=== PATIENT | male | born 1955 | race Caucasian/White ===

== ENCOUNTER 2017-05-20 03:39 | Emergency (ER) | payer OTHER, SELFPAY | END 2017-05-20 06:20 | disposition home or self-care (01) | PROVIDERS: Emergency Provider Emergency Medicine; Family Provider Family Medicine Addiction Medicine; Visit Provider Emergency Medicine | DX: N45.1 Epididymitis (principal); J44.9 Chronic obstructive pulmonary disease, unspecified; F17.210 Nicotine dependence, cigarettes, uncomplicated; K21.9 Gastro-esophageal reflux disease without esophagitis; Z79.82 Long term (current) use of aspirin; Z79.51 Long term (current) use of inhaled steroids; Z79.899 Other long term (current) drug therapy | CPT/HCPCS: 80048; 80053; 82150; 83690; 96372; 99282 ==

== ENCOUNTER 2017-05-26 11:20 | Emergency (ER) | payer OTHER, SELFPAY | END 2017-05-26 14:06 | disposition home or self-care (01) | PROVIDERS: Emergency Provider Family Medicine; Visit Provider Family Medicine | DX: K29.00 Acute gastritis without bleeding (principal); Z79.899 Other long term (current) drug therapy | CPT/HCPCS: 36415; 80053; 85025; 85378; 99283 ==

== ENCOUNTER 2021-03-01 21:16 | Emergency (ER) | payer OTHER, MEDICARE, SELFPAY ==
[2021-03-01 21:13] VITALS: BMI 32.5
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
[2021-03-01 21:20] VITALS: BP 130/80; PULSE 98; RESP 22; TEMP 37.2; O2SAT 99
[2021-03-01 21:25] LABS: Basophils # 0.1 K/mm3 (0-0.2); Basophils % 1.1 % (0.1-2.0); Eosinophils # 0.4 K/mm3 (0.0-0.4); Hemoglobin 15.1 g/dL (14.1-18.0); Lymphocytes # 2.2 K/mm3 (0.7-4.5); Lymphocytes % 28.3 % (10-50); Mean Corpuscular HGB Conc 34.3 g/dL (31.8-35.4); Mean Corpuscular Hemoglobin 31.8 pg (27.0-31.2); Mean Corpuscular Volume 92.7 fl (80-94); Mean Platelet Volume 8.1 fl (7.4-10.4); Monocytes # 0.5 K/mm3 (0.1-1.0); Monocytes % 6.3 % (1.7-9.3); Neutrophils # 4.6 K/mm3 (1.8-7.8); Neutrophils % 59.2 % (37.0-80.0); Platelet Count 210 K/mm3 (142-424); Red Blood Count 4.75 M/mm3 (4.60-6.20); White Blood Count 7.7 K/mm3 (4.8-10.8)
[2021-03-01 21:29] LABS: Chloride 102 mmol/L (98-107)
[2021-03-01 21:30] LABS: Sodium 137 mmol/L (136-145)
[2021-03-01 21:32] LABS: Alanine Aminotransferase 27 U/L (12-78); Alkaline Phosphatase 108 U/L (38-126); Aspartate Amino Transferase 34 U/L (17-59); Blood Urea Nitrogen 14 mg/dl (9-20); Creatinine Clearance Estimated 112 mL/min (50-200); Estimated Glomerular Filt Rate 84 ml/min (>60); GFR (African American) 102 ML/MIN (>60)
[2021-03-01 21:33] LABS: Albumin Level 3.9 g/dl (3.5-5.0); Albumin/Globulin Ratio 1.3 (1.1-1.8); Carbon Dioxide 29 mmol/L (22.0-30.0); Globulin 2.9 g/dL (1.3-3.2); Glucose 173 mg/dl (74-100); Total Protein,Serum 6.8 g/dl (6.3-8.2)
[2021-03-01 21:43] LABS: Bilirubin,Total < 0.1 mg/dl (0.2-1.3)
[2021-03-01 21:55] LABS: Erythrocyte Sedimentation Rate 21 mm/hr (0-20)
[2021-03-01 22:22] LABS: Procalcitonin 0.055 ng/mL (0.0-2.0)
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
[2021-03-02 01:10] VITALS: BP 124/75; PULSE 83; RESP 20; TEMP 37.1; O2SAT 99
== END 2021-03-02 01:19 | disposition home or self-care (01) ==
PROVIDERS: Emergency Provider Emergency Medicine; PCP Family Medicine
DX: S01.81XA Laceration without foreign body of other part of head, initial encounter (principal); S16.1XXA Strain of muscle, fascia and tendon at neck level, initial encounter; S00.03XA Contusion of scalp, initial encounter; V89.2XXA Person injured in unspecified motor-vehicle accident, traffic, initial encounter; Y92.413 State road as the place of occurrence of the external cause
CPT/HCPCS: 12002; 70450; 71045; 72125; 72170; 80053; 84145; 85025; 85651; 86140; 96365; 96375; 99281

== ENCOUNTER 2021-03-03 16:03 | Emergency (ER) | payer OTHER, MEDICARE, SELFPAY ==
[2021-03-03 16:04] VITALS: BP 154/101; PULSE 113; RESP 18; TEMP 36.7; O2SAT 96; BMI 27.4
[2021-03-03 16:34] VITALS: BP 154/101; PULSE 97; RESP 16; O2SAT 98
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
[2021-03-03 18:47] VITALS: BP 123/74; PULSE 78; RESP 16; TEMP 36.6; O2SAT 98
== END 2021-03-03 18:49 | disposition home or self-care (01) ==
PROVIDERS: Emergency Provider Emergency Medicine; PCP Family Medicine
DX: S70.12XA Contusion of left thigh, initial encounter (principal); V49.3XXA Car occupant (driver) (passenger) injured in unspecified nontraffic accident, initial encounter; Y92.488 Other paved roadways as the place of occurrence of the external cause; F17.210 Nicotine dependence, cigarettes, uncomplicated
CPT/HCPCS: 72192; 73552; 73700; 99282

== ENCOUNTER 2021-04-13 18:31 | Emergency (ER) | payer MEDICARE, SELFPAY ==
[2021-04-13 19:40] VITALS: BP 159/100; PULSE 75; RESP 18; TEMP 36.7; O2SAT 97; BMI 28.5
--- NOTE | 2021-04-13 20:25 | HMH.EDUTC ---
[facility] [place] Clinical Impression: Local reaction to pneumococcal vaccine Disposition: Home, Self-Care Condition on Discharge: Good Instructions: DI for Adverse Drug Reaction -- Other Additional Instructions: Take the medications as directed. Follow up with your regular doctor for a recheck of the site in 24 to 48 hours. Take benedryl regularly for the next few days also. GO TO THE ER FOR ANY WORSENING SYMPTOMS Prescriptions: cephALEXin [cephALEXin 500mg capsule] 500 mg PO Q6H 10 Days #40 cap Transmission Status: Pending to [id number] Referrals: Provider,Referral, [Primary Care Provider] - Time of Disposition: 20:41 Medical Decision Making - Medical Records Medical records reviewed: No: I reviewed the patient's medical records. - Kaveh Inquiry Pt receiving controlled substance: No Vital Signs: 04/13/21 19:40 Temperature 98.1 F Temperature Source Oral Pulse Rate [Left] 75 Respiratory Rate 18 Blood Pressure [Right Arm] 159/100 H Blood Pressure Mean [Right Arm] 119 02 Sat by Pulse Oximetry 97 [facility] [place] - General Stated complaint: pNEUMONIA 04/11 l ARM PAIN SWOLLEN Time Seen by Provider: 04/13/21 20:25 Mode of Arrival: Ambulatory Source of Information: Patient Limitations: No Limitations Description of Symptoms (Recalled from Triage Doc. by RN): PT STATES HE HAD HIS PNEUMONIA VACCINE YESTERDAY IN HIS L DELT. THIS AM HE WOKE UP AND HIS L ARM WAS SWOLLEN, PAINFUL AND RED FROM HIS SHOULDER DOWN TO HIS FA. HEENT Symptoms (Recalled from RN notes): No Resp Symptoms (Recalled from RN notes): No Skin Symptoms (Recalled from RN notes): Yes MS Symptoms (Recalled from RN notes): No Functional Status (Recalled from RN notes): NA - History of Present Illness Provider Complaint: He recieved his pneumonia vaccine 2 days ago in his left upper arm. He has had redness below the site down to around his elbow since yesterday. He also has some swelling of the arm around the injection site. - Related Data Previous Rx's Medication Instructions Recorded Meloxicam [Mobic 15 mg tab] 15 mg PO DAILY #10 tab 03/03/21 cephALEXin [cephALEXin 500mg 500 mg PO Q6H 10 Days #40 cap 04/13/21 capsule] Allergies Allergy/AdvReac Type Severity Reaction Status Date / Time No Known Allergies Allergy Unverified 05/26/17 11:34 - Worker's Comp Is this a Worker's Comp case?: No [facility] History - Hepatitis A Screen Drug use history?: No High risk sexual behaviors?: No History of sexually transmitted infection?: No Currently employed?: No Childcare worker?: No Do you have indoor plumbing?: Yes Do you have electricity?: Yes Attestation statement:: This patient has been screened for Hepatitis A risk factors. I have reviewed the patient's past medical history: Yes Medical History: Denies:: Cancer - Social History Smoking Status: Current every day smoker ROS Obtained: Yes All systems reviewed & no additional complaints - Constitutional Constitutional: Denies chills, Denies fever(s) - Eyes Eyes: Denies eye discharge - ENT Ears, Nose, Mouth, and Throat: Denies dizziness, Denies otalgia, Denies sore throat, Denies vertigo/dizziness - Cardiovascular Cardiovascular: Denies chest pain - Respiratory Respiratory: Denies chest congestion, Denies cough - Musculoskeletal Musculoskeletal: Denies joint pain, Denies back pain, Denies neck pain - Integumentary/Breasts Skin/Breast: Reports as per HPI Physical Exam - General General appearance: alert, in no apparent distress - Head Head exam: atraumatic, normocephalic, normal inspection - Eye Eye exam: Present: normal appearance, PERRL, EOMI - ENT ENT exam: Present: normal exam, normal oropharynx, mucous membranes moist, TM's normal bilaterally, normal external ear exam - Neck Neck exam: Present: normal inspection, full ROM, trachea midline. Absent: meningismus, lymphadenopathy - Chest Chest inspection: Present:
[2021-04-13 20:44] VITALS: BP 159/100; PULSE 75; RESP 18; TEMP 36.7
== END 2021-04-13 20:45 | disposition home or self-care (01) ==
PROVIDERS: Emergency Provider Nurse Practitioner Family
DX: R22.41 Localized swelling, mass and lump, right lower limb (principal); T50.A95A Adverse effect of other bacterial vaccines, initial encounter; F17.210 Nicotine dependence, cigarettes, uncomplicated
CPT/HCPCS: G0463; 99202

== ENCOUNTER 2021-08-16 17:00 | Emergency (ER) | payer MEDICARE, SELFPAY ==
[2021-08-16 18:24] VITALS: BP 145/100; PULSE 91; RESP 18; TEMP 37; O2SAT 98; BMI 30.1
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
[2021-08-16 18:54] VITALS: BP 146/98; PULSE 90; RESP 18; TEMP 36.7; O2SAT 97; BMI 30.1
--- NOTE | 2021-08-16 19:02 | HMH.EDGENADL ---
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 Holter monitor has been applied. Follow-up with your primary care provider next week for further care and for Holter monitor results. Return to the emergency department if fainting returns. Prescriptions: Metoprolol Succinate [Metoprolol Succinate 25mg Tablet*] 25 mg PO DAILY #30 tab Transmission Status: Received by [id number] Referrals: Terell Martin JR, MD [Primary Care Provider] - - Critical Care Critical Care Time: No Attestation: On 08/16/21, the high probability of a clinically significant, sudden or life threatening deterioration of the following system(s) required my full and direct attention, intervention and personal management. The time I documented below is in addition to time spent performing reported procedures but includes the following listed in this critical care notation. Medical Decision Making - Kaveh Inquiry Pt receiving controlled substance: No Vital Signs: 08/16/21 18:24 08/16/21 18:54 08/16/21 19:45 Temperature 98.6 F 98.1 F Temperature Source Oral Oral Pulse Rate [Left] 91 H 90 Pulse Rate [Orthostatic Lying Left Radial] 82 Pulse Rate [Orthostatic Sitting Left Radial] 85 Pulse Rate [Orthostatic Standing Left Radial] 86 Respiratory Rate 18 18 Blood Pressure [Orthostatic Lying Right Arm] 138/95 H Blood Pressure [Orthostatic Sitting] 144/96 H Blood Pressure [Orthostatic Standing] 140/103 H Blood Pressure [Right Arm] 145/100 H 146/98 H Blood Pressure Mean [Right Arm] 115 114 Blood Pressure Source [Right Arm] Automatic Cuff Blood Pressure Position [Right Arm] Sitting 02 Sat by Pulse Oximetry 98 97 Oxygen Delivery Method Room Air - Lab Data Lab Results 08/16/21 19:32: WBC 10.5, RBC 5.62, Hgb 17.2, Hct 53.3 H, MCV 94.7 H, MCH 30.6, MCHC 32.3, RDW 13.9, Plt Count 262, MPV 8.5, Neut % (Auto) 79.3, Lymph % (Auto) 13.7, [place] % (Auto) 4.1, Eos % (Auto) 1.4, Baso % (Auto) 1.4, Neut # (Auto) 8.3 H, Lymph # (Auto) 1.5, [place] # (Auto) 0.4, Eos # (Auto) 0.1, Baso # (Auto) 0.2 08/16/21 19:32: Sodium 139, Potassium 4.5, Chloride 105, Carbon Dioxide 27, Anion Gap 11.5, BUN 17, Creatinine 1.10, Estimated Creat Clear 90, Estimated GFR 67, Est GFR ( Amer) 81, Glucose 98, Calcium 9.0, Total Bilirubin 0.5, AST 33, ALT 46, Alkaline Phosphatase 87, Troponin I < 0.01, Total Protein 8.0, Albumin 4.8, Globulin 3.2, Albumin/Globulin Ratio 1.5, Thyroxine (T4) 8.6 Result diagrams: 08/16/21 19:32 08/16/21 19:32 Orders (Tests/Meds): ED MEDICATIONS Generic Name Dose Route Start Last Admin Trade Name Freq PRN Reason Stop Dose Admin Sodium Chloride 10 ml 08/16/21 19:04 Sodium Chloride 0.9% 10ml Flush Syringe IV 09/15/21 19:03 NEEDED PRN Maintain IV Site Discontinued Medications Generic Name Dose Route Start Last Admin Trade Name Freq PRN Reason Stop Dose Admin Ketorolac Tromethamine 15 mg 08/16/21 20:01 08/16/21 20:15 Ketorolac 30mg/Ml Vial IV 08/16/21 20:02 15 mg ONCE ONE Administration ORDERS Category Date Time Status Comprehensive Metabolic Panel Stat Lab 08/16/21 19:32 Results T4 (Thyroxine) Stat Lab 08/16/21 19:32 Results TSH [Thyroid Stimulating Hormone] Stat Lab 08/16/21 19:32 Results Troponin I Q3H Lab 08/16/21 22:15 Ordered Troponin I Q3H Lab 08/17/21 01:15 Ordered Troponin I Stat Lab 08/16/21 19:32 Results Urinalysis and Microscopic Stat Lab 08/16/21 19:04 Order
--- NOTE | 2021-08-16 19:03 | XR_ITS ---
PROCEDURE INFORMATION: Exam: XR Chest Exam date and time: 08/16/2021 7:03 PM Age: 66 years old Clinical indication: Other: Syncopal episodes TECHNIQUE: Imaging protocol: XR of the chest. Views: 2 views. COMPARISON: CR XR CHEST PORTABLE 03/01/2021 9:15 PM FINDINGS: Lungs: Low lung volumes with bibasal subsegmental atelectasis/scarring. Few calcified pulmonary granulomata compatible with chronic sequelae of prior granulomatous disease, unchanged. Pleural spaces: No pleural effusion. No pneumothorax. Heart/Mediastinum: Cardiomediastinal silhouette is unchanged. Bones/joints: No acute osseous abnormality. Soft tissues: Unremarkable. IMPRESSION: No evidence of acute cardiopulmonary disease.
--- NOTE | 2021-08-16 19:04 | CT_ITS ---
PROCEDURE INFORMATION: Exam: CT Head Without Contrast Exam date and time: 08/16/2021 7:04 PM Age: 66 years old Clinical indication: Syncope and collapse TECHNIQUE: Imaging protocol: Computed tomography of the head without contrast. Radiation optimization: All CT scans at this facility use at least one of these dose optimization techniques: automated exposure control; mA and/or kV adjustment per patient size (includes targeted exams where dose is matched to clinical indication); or iterative reconstruction. COMPARISON: CT HEAD/BRAIN WO CON 03/01/2021 9:51 PM FINDINGS: Brain: No acute intracranial hemorrhage. No intra- or extra-axial fluid collection. No mass effect or midline shift. Cerebral ventricles: No hydrocephalus. Paranasal sinuses: No air fluid levels in the visualized paranasal sinuses. Mastoid air cells: Visualized mastoid air cells are well aerated. Orbital cavities: Bilateral lens replacement. Globes and retro-orbital structures are otherwise unremarkable. Bones/joints: No acute calvarial or skull base fracture. Soft tissues: Within normal limits. IMPRESSION: No evidence of acute intracranial abnormality.
--- NOTE | 2021-08-16 19:12 | ECG_ITS ---
APPROVED REPORT Exam: Resting ECG HR:81 bpm ECG Measurements Heart Rate 81 AXES MA 157 P 57 QRSd 94 QRS 49 QT 360 T 54 QTc 398 Conclusion SINUS RHYTHM NORMAL ECG UNCONFIRMED REPORT Electronically signed by : Amol Umanzor MD 08/17/2021 17:28:20
[2021-08-16 19:44] LABS: Basophils # 0.2 K/mm3 (0-0.2); Basophils % 1.4 % (0.1-2.0); Eosinophils # 0.1 K/mm3 (0.0-0.4); Eosinophils % 1.4 % (0.1-12.0); Hematocrit 53.3 % (42.0-52.0); Hemoglobin 17.2 g/dL (14.1-18.0); Lymphocytes # 1.5 K/mm3 (0.7-4.5); Lymphocytes % 13.7 % (10-50); Mean Corpuscular HGB Conc 32.3 g/dL (31.8-35.4); Mean Corpuscular Hemoglobin 30.6 pg (27.0-31.2); Mean Corpuscular Volume 94.7 fl (80-94); Mean Platelet Volume 8.5 fl (7.4-10.4); Monocytes # 0.4 K/mm3 (0.1-1.0); Monocytes % 4.1 % (1.7-9.3); Neutrophils # 8.3 K/mm3 (1.8-7.8); Neutrophils % 79.3 % (37.0-80.0); Platelet Count 262 K/mm3 (142-424); Red Blood Count 5.62 M/mm3 (4.60-6.20); Red Cell Distribution Width 13.9 % (11.5-17.5); White Blood Count 10.5 K/mm3 (4.8-10.8)
[2021-08-16 19:45] VITALS: BP 138/95; BP 140/103; BP 144/96; PULSE 82; PULSE 85; PULSE 86
[2021-08-16 19:49] LABS: Chloride 105 mmol/L (98-107); Potassium 4.5 mmoL/L (3.5-5.1); Sodium 139 mmol/L (136-145)
[2021-08-16 19:51] LABS: Blood Urea Nitrogen 17 mg/dl (9-20); Creatinine Clearance Estimated 90 mL/min (50-200); Estimated Glomerular Filt Rate 67 ml/min (>60); GFR (African American) 81 ML/MIN (>60)
[2021-08-16 19:52] LABS: Alanine Aminotransferase 46 U/L (12-78); Albumin Level 4.8 g/dl (3.5-5.0); Albumin/Globulin Ratio 1.5 (1.1-1.8); Alkaline Phosphatase 87 U/L (38-126); Anion Gap 11.5 mEq/L (5-15); Aspartate Amino Transferase 33 U/L (17-59); Bilirubin,Total 0.5 mg/dl (0.2-1.3); Carbon Dioxide 27 mmol/L (22.0-30.0); Globulin 3.2 g/dL (1.3-3.2); Glucose 98 mg/dl (74-100)
[2021-08-16 20:09] LABS: T4 (Thyroxine) 8.6 ug/dl (5.53-11.0)
[2021-08-16 20:19] LABS: Troponin I < 0.01 ng/ml (0.00-0.034)
[2021-08-16 20:23] LABS: Thyroid Stimulating Hormone 2.98 uIU/mL (0.465-4.68)
[2021-08-16 20:48] VITALS: BP 146/78; PULSE 69; RESP 18; TEMP 36.6; O2SAT 99
[2021-08-16 20:50] LABS: Microscopic, Urine URINE MICROSCOPIC (MICROSCOPIC)
[2021-08-16 20:57] LABS: Appearance,Urine CLEAR (Clear); Bilirubin,Urine Negative (Negative); Blood, Urine Negative (Negative); Color,Urine YELLOW (Yellow); Glucose,Urine (UA) Negative (Negative); Ketones,Urine Negative (Negative); Leukocyte Esterase,Urine Negative (Negative); Nitrate,Urine Negative (Negative); Protein,Urine Negative (Negative); Specific Gravity, Urine 1.025 (1.005-1.030); Urobilinogen,Urine 0.2 EU/dl (0.2)
[2021-08-16 21:15] LABS: Squamous Epithelial Cell,Urine Occasional #/hpf (0-5); WBC,Urine Occasional #/hpf (0-3)
--- NOTE | 2021-08-17 08:42 | PC.NURSE ---
Spoke with RT this AM. They advised that pt was non-compliant with wearing holter monitor that was ordered by ED physician. RT showed this nurse a handwritten note on a post-it from pt that stated disregard because I am not going to wear it . RT advised that they had an incomplete ECG reading.
--- NOTE | 2021-08-17 09:33 | PC.NURSE ---
PATIENT RETURNED HOLTER MONITOR SAYING TO DISREGARD. HE WASN'T GOING TO WEAR IT. ER NURSE NOTIFIED.
== END 2021-08-16 20:50 | disposition home or self-care (01) ==
LOC: UTC 18:41 → ER 18:50
PROVIDERS: Emergency Provider Emergency Medicine; PCP Family Medicine
DX: R55 Syncope and collapse (principal); R51.9 Headache, unspecified; F17.210 Nicotine dependence, cigarettes, uncomplicated; R20.2 Paresthesia of skin
CPT/HCPCS: 70450; 71046; 80053; 81001; 84436; 84443; 84484; 85025; 93005; 93225; 93226; 96374; 99284

== ENCOUNTER 2021-12-16 19:47 | Emergency (ER) | payer MEDICARE, SELFPAY ==
[2021-12-16 19:48] VITALS: BP 141/93; PULSE 88; RESP 20; TEMP 36.6; O2SAT 95; BMI 27.7
--- NOTE | 2021-12-16 20:18 | HMH.EDUTC ---
[facility] [place] Clinical Impression: Acute bronchitis Qualifiers: Bronchitis organism: unspecified organism Qualified Code(s): J20.9 - Acute bronchitis, unspecified Disposition: Home, Self-Care Condition on Discharge: Good Instructions: Acute Bronchitis, DI for Acute Bronchitis Additional Instructions: Drink plenty of fluids. Take tylenol or ibuprofen for pain or fever. Take the medications as directed. Follow up with your regular doctor. GO TO THE ER FOR ANY WORSENING SYMPTOMS Quarantine until you know the results of your covid-19 test. Notify your school or workplace of your results and follow their instructions regarding return to work/school. Don't start the oral steroids until tomorrow, since you had the shot here today. The cough medication (promethazine dm) will make you drowsy, so don't drive or operate heavy machinery after taking it. Prescriptions: Promethazine/Dextromethorphan [Promethazine-Dm Syrup] 5 ml PO Q6HP PRN #240 ml PRN Reason: Cough Transmission Status: Received by [facility] Benzonatate [Benzonatate 100mg cap] 100 mg PO TIDP PRN #30 cap PRN Reason: Cough Transmission Status: Received by [facility] methylPREDNISolone [Medrol] 4 mg PO DIRECTED 6 Days #21 packet Transmission Status: Received by [facility] Azithromycin [Z-Luca 250mg Tab*] 250 mg PO UD DOSE PK #6 tab Transmission Status: Received by [facility] Referrals: Provider,Referral, [Primary Care Provider] - Time of Disposition: 20:50 Medical Decision Making - Medical Records Medical records reviewed: No: I reviewed the patient's medical records. - Kaveh Inquiry Pt receiving controlled substance: No Vital Signs: 12/16/21 19:48 12/16/21 20:54 Temperature 97.9 F 97.9 F Temperature Source Oral Oral Pulse Rate 85 Pulse Rate [Brachial] 88 Respiratory Rate 20 20 Blood Pressure 142/90 H Blood Pressure [Right Arm] 141/93 H Blood Pressure Mean [Right Arm] 109 Blood Pressure Source [Right Arm] Automatic Cuff Blood Pressure Position Sitting Blood Pressure Position [Right Arm] Sitting 02 Sat by Pulse Oximetry 95 Oxygen Delivery Method Room Air Room Air Orders (Tests/Meds): ED MEDICATIONS Discontinued Medications Generic Name Dose Route Start Last Admin Trade Name Freq PRN Reason Stop Dose Admin Ceftriaxone Sodium 1 gm 12/16/21 20:31 12/16/21 20:40 Ceftriaxone 1gm Vial IM 12/16/21 20:32 1 gm ONCE ONE Administration Lidocaine HCl 0 ml 12/16/21 20:31 12/16/21 20:40 Lidocaine 1% 5ml Pf Vial IM 12/16/21 20:32 2 ml ONCE ONE Administration Methylprednisolone Sodium Succinate 125 mg 12/16/21 20:31 12/16/21 20:40 Methylprednisolone Sod Succ 125mg Vial IM 12/16/21 20:32 125 mg ONCE ONE Administration ORDERS Category Date Time Status Covid-19 Nasal PCR ([facility]) Routine Lab 12/16/21 20:04 [place] [facility] [place] - General Stated complaint: sorre throat, cough and HD Time Seen by Provider: 12/16/21 20:18 Mode of Arrival: Ambulatory Source of Information: Patient Limitations: No Limitations Description of Symptoms (Recalled from Triage Doc. by RN): COUGHT, SOA, PRODUCTIVE COUGH AND HEADACHE HEENT Symptoms (Recalled from RN notes): Yes Resp Symptoms (Recalled from RN notes): Yes Skin Symptoms (Recalled from RN notes): No MS Symptoms (Recalled from RN notes): No Functional Status (Recalled from RN notes): N/A - History of Present Illness Provider Complaint: He states that for the past 2 days he has had a worsening chest congestion with productive cough. He denies n/v. He has had a low grade fever at home also. He has been fully vaccinated against covid-19. - Related Data Previous Rx's Medication Instructions Recorded Metoprolol Succinate [Metoprolol 25 mg PO DAILY #30 tab 08/16/21 Succinate 25mg Tablet*] Azithromycin [Z-Luca 250mg Tab*] 250 mg PO UD DOSE PK #6 tab 12/16/21 Benzonatate [Benzo
[2021-12-16 20:54] VITALS: BP 142/90; PULSE 85; RESP 20; TEMP 36.6; O2SAT 95
== END 2021-12-16 20:56 | disposition home or self-care (01) ==
PROVIDERS: Emergency Provider Nurse Practitioner Family
DX: J20.9 Acute bronchitis, unspecified (principal); F17.200 Nicotine dependence, unspecified, uncomplicated
CPT/HCPCS: 96372; 99212; C9803; G0463; J0696; U0003; U0005

== ENCOUNTER 2022-06-09 21:15 | Emergency (ER) | payer MEDICARE, SELFPAY ==
[2022-06-09 21:16] VITALS: BP 145/90; PULSE 104; RESP 14; TEMP 36.6; O2SAT 98; BMI 28.1
--- NOTE | 2022-06-09 21:27 | CT_ITS ---
PROCEDURE INFORMATION: Exam: CT Cervical Spine Without Contrast Exam date and time: 06/09/2022 9:40 PM Age: 67 years old Clinical indication: Neck pain TECHNIQUE: Imaging protocol: Computed tomography of the cervical spine without contrast. Radiation optimization: All CT scans at this facility use at least one of these dose optimization techniques: automated exposure control; mA and/or kV adjustment per patient size (includes targeted exams where dose is matched to clinical indication); or iterative reconstruction. COMPARISON: CT CERVICAL SPINE WO CON 03/01/2021 9:55 PM FINDINGS: Bones/joints: There is severe left-sided facet arthropathy at the C2-C3, C3-C4 and C4-C5 levels. More mild facet arthropathy noted at the other cervical levels. Moderate degenerative changes noted at the atlantoaxial joint. Mild degenerative disc changes noted at C5-C6 and C6-C7. No acute fracture or subluxation evident. Lungs: Lung apices are normal. Soft tissues: Unremarkable. IMPRESSION: Stable degenerative changes of the cervical spine as described. No evidence of acute injury.
[2022-06-09 21:30] VITALS: BP 134/88; PULSE 96; O2SAT 95
--- NOTE | 2022-06-09 21:43 | HMH.EDNECK ---
Discharge Plan Disposition Patient Disposition: Home, Self-Care Prescriptions Prescriptions: New prednisone [prednisone] 20 mg tablet 20 mg PO DAILY Qty: 5 0RF No Action metoprolol succinate 25 MG tablet extended release 24 hr 25 mg PO DAILY Qty: 30 0RF azithromycin 250 MG tablet 250 mg PO UD DOSE PK Qty: 6 0RF Rx Instructions: Take two (2) tablets today, then one (1) tablet days #2 thru #5 benzonatate 100 MG capsule 100 mg PO TIDP PRN (Reason: Cough) Qty: 30 0RF methylprednisolone 4 MG tablets,dose pack 4 mg PO DIRECTED 6 Days Qty: 21 0RF promethazine-DM 120 ML syrup 5 ml PO Q6HP PRN (Reason: Cough) Qty: 240 0RF Referrals Follow up/Referrals: Harmony Lutz MD [Primary Care Provider] - See instructions Clinical Impressions Clinical Impression: Cervical radicular pain Instructions Patient Instructions: DI for Neck Pain Discharge ED Provider: Johnathan Dolan Neck Pain/Injury HPI General Chief Complaint: Neck Pain/Injury Stated Complaint: neck pain Time Seen by Provider: 06/09/22 21:43 Mode of Arrival: Ambulatory Source of Information: Patient and Medical Record Limitations: No Limitations Description of Symptoms (Recalled from ER Triage Doc. by RN): pt c/o neck pain that started this morning . pt denies any accident or trauma History of Present Illness HPI Narrative: post neck pain with rad to lt upper neck w/o fever/rash or trauma - no sob or chest pain complaint: neck pain Onset (ago): day(s) Place: home Radiation: left lateral Severity: moderate Quality: dull Duration: intermittent Exacerbating factors: movement of neck Associated symptoms: none Treatments prior to arrival: none Related Data Previous Rx's Medication Instructions Recorded metoprolol succinate 25 mg 25 mg PO DAILY #30 tabs 08/16/21 tablet,extended release 24 hr azithromycin 250 mg tablet 250 mg PO UD DOSE PK #6 tabs 12/16/21 benzonatate 100 mg capsule 100 mg PO TIDP PRN Cough #30 caps 12/16/21 methylprednisolone 4 mg tablets in 4 mg PO DIRECTED 6 days #21 12/16/21 a dose pack packets promethazine-DM 6.25 mg-15 mg/5 mL 5 ml PO Q6HP PRN Cough #240 mL 12/16/21 oral syrup prednisone 20 mg tablet 20 mg PO DAILY #5 tabs 06/09/22 Allergies Allergy/AdvReac Type Severity Reaction Status Date / Time No Known Allergies Allergy Unverified 05/26/17 11:34 [facility] Disclaimer: The information contained in this section may have been updated after the patient was seen, as this information can be updated by other users. Social History Smoking Status: Current every day smoker alcohol intake: never current occupational status: employed Travel in the last 8 weeks: None ROS Obtained: Yes All systems reviewed & no additional complaints except as documented Physical Exam General General appearance: alert Head Head exam: normocephalic Eye Eye exam: Present PERRL and EOMI ENT ENT exam: Present mucous membranes moist Neck Neck exam: Present trachea midline and tenderness; Absent full ROM, meningismus or lymphadenopathy Respiratory Respiratory exam: Absent respiratory distress Cardiovascular Cardiovascular exam: Present regular rate Extremities Exam Extremities exam: Present full ROM Neurological Exam Neurological exam: Present alert and oriented X3; Absent motor sensory deficit Psychiatric Psychiatric exam: Present normal affect Skin Skin exam: Absent rash Medical Decision Making Medical Records Medical records reviewed: Yes I reviewed the patient's medical records. Kaveh Inquiry Pt receiving controlled substance: No Vital Signs: 06/09/22 21:16 06/09/22 21:30 06/09/22 22:00 Temperature 98 F Temperature Source Oral Pulse Rate 96 H 94 H Pulse Rate [Right] 104 H Respiratory Rate 14 Blood Pressure 134/88 115/78 Blood Pressure [Right Arm] 145/90 H Blood Pressure Mean [Right Arm] 108 02 Sat by Pulse Oximetry 98 95 97 Lab Data Lab re
[2022-06-09 22:00] VITALS: BP 115/78; PULSE 94; O2SAT 97
[2022-06-09 22:42] VITALS: BP 109/79; PULSE 87; RESP 18; TEMP 37.1
== END 2022-06-09 22:48 | disposition home or self-care (01) ==
PROVIDERS: Emergency Provider Emergency Medicine; PCP Family Medicine
DX: M54.12 Radiculopathy, cervical region (principal); F17.210 Nicotine dependence, cigarettes, uncomplicated
CPT/HCPCS: 72125; 99284

== ENCOUNTER 2022-06-11 03:28 | Emergency (ER) | payer MEDICARE, SELFPAY ==
[2022-06-11 03:38] VITALS: BP 0/0; PULSE 0; RESP 0; TEMP -17.7; TEMP 0; O2SAT 0
== END 2022-06-11 03:38 | disposition left against medical advice (07) ==
LOC: ER 03:33
PROVIDERS: Emergency Provider Emergency Medicine; PCP Family Medicine
DX: M54.2 Cervicalgia (principal)
CPT/HCPCS: 99211

== ENCOUNTER 2023-05-02 03:23 | Emergency (ER) | payer MEDICARE, SELFPAY ==
[2023-05-02 03:26] VITALS: BP 151/99; PULSE 106; RESP 18; TEMP 36.9; O2SAT 94; BMI 28.8
--- NOTE | 2023-05-02 03:38 | CT_ITS ---
PROCEDURE INFORMATION: Exam: CT Abdomen And Pelvis With Contrast Exam date and time: 05/02/2023 4:29 AM Age: 67 years old Clinical indication: Abdominal pain; Localized; Lower; Prior surgery; Surgery date: Post-operative (0-2 days); Surgery type: Prostate surgery on 02/28. ; Additional info: Postop prostatectomy, pain/distention/bleeding TECHNIQUE: Imaging protocol: Computed tomography of the abdomen and pelvis with contrast. Radiation optimization: All CT scans at this facility use at least one of these dose optimization techniques: automated exposure control; mA and/or kV adjustment per patient size (includes targeted exams where dose is matched to clinical indication); or iterative reconstruction. Contrast material: ISOVUE; Contrast volume: 75 ml; Contrast route: IV; REPORTING DATA: Count of CT and Cardiac NM exams in prior 12 months: This patient has received [address] and 0 known cardiac nuclear medicine studies in the 12 months prior to the current study. COMPARISON: CT PELVIS WO CON 03/03/2021 4:53 PM FINDINGS: Liver: Normal. No mass. Gallbladder and bile ducts: Prior cholecystectomy. Pancreas: Normal. No ductal dilation. Spleen: Normal. No splenomegaly. Adrenal glands: Normal. No mass. Kidneys and ureters: Large simple appearing right renal cyst. Bilateral nephrolithiasis with multiple small stones measuring up to 4 mm. No evidence of hydronephrosis or hydroureter. Stomach and bowel: No bowel obstruction is noted. Appendix: No evidence of appendicitis. Intraperitoneal space: Unremarkable. No free air. No significant fluid collection. Vasculature: Unremarkable. No abdominal aortic aneurysm. Lymph nodes: Unremarkable. No enlarged lymph nodes. Urinary bladder: The bladder wall is thickened, Flores catheter is present. Reproductive: Postsurgical changes noted following prostatectomy. Bones/joints: Unremarkable. No acute fracture. Soft tissues: Some subcutaneous air is seen. There is pelvic hematoma present bilaterally more prominent on the right. IMPRESSION: 1. Postoperative changes following prostatectomy to include small infiltrating bilateral retroperitoneal hematoma more prominent on the right. The bladder wall appears thickened. A small amount of free fluid is noted in the dependent pelvis and some subcutaneous air is present. 2. Bilateral nephrolithiasis. 3. Prior cholecystectomy. COMMENTS: Consistent with the [place]'s Incidental Findings Committee white paper (J Am Storm Radiol 2018): Any incidental renal lesion less than 1 cm or classified as too small to characterize, or any incidental cystic renal lesion characterized as simple-appearing, is likely benign. No follow-up imaging is recommended for these lesions per consensus recommendations based on imaging criteria.
--- NOTE | 2023-05-02 03:42 | HMH.EDGENADL ---
Discharge Plan Disposition Patient Disposition: Home, Self-Care Condition: Good Prescriptions Prescriptions: New polyethylene glycol 3350 [Miralax] 17 gram/dose powder 17 g PO DAILY Qty: 510 0RF senna 8.6 mg capsule 8.6 mg PO DAILY Qty: 30 0RF No Action metoprolol succinate 25 MG tablet extended release 24 hr 25 mg PO DAILY Qty: 30 0RF azithromycin 250 MG tablet 250 mg PO UD DOSE PK Qty: 6 0RF Rx Instructions: Take two (2) tablets today, then one (1) tablet days #2 thru #5 benzonatate 100 MG capsule 100 mg PO TIDP PRN (Reason: Cough) Qty: 30 0RF methylprednisolone 4 MG tablets,dose pack 4 mg PO DIRECTED 6 Days Qty: 21 0RF promethazine-DM 120 ML syrup 5 ml PO Q6HP PRN (Reason: Cough) Qty: 240 0RF prednisone [prednisone] 20 mg tablet 20 mg PO DAILY Qty: 5 0RF Referrals Follow up/Referrals: Cody Lutz MD [Primary Care Provider] - See instructions Activity Restrictions/Add. Instructions Additional Instructions/Restrictions: You were evaluated in the emergency department today. At this time, your workup is reassuring. You are constipated, for which I am prescribing you 2 different medications. Please pick them up and take them as prescribed. Contact your urologist who performed the surgery and let them know that you were evaluated in the emergency department for pain and constipation. Return to the emergency department for new or worsening symptoms. Clinical Impressions Clinical Impression: Post-operative pain, Constipation Instructions Patient Instructions: DI for Constipation, DI for Acute Abdominal Pain, DI for Postoperative Pain Discharge ED Provider: Bailey Argueta General Adult HPI General Chief complaint: Abdominal Pain Stated complaint: Prostate surgery 04/30/23 pain in back,bleeding Time Seen by Provider: 05/02/23 03:30 Mode of Arrival: Wheelchair Source of Information: Patient Limitations: No Limitations Description of Symptoms (Recalled from ER Triage Doc. by RN): Patient reports that he had a prostate surgery on Saturday at [facility]. Was discharged from the hospital today without problem. After a few hours patient states that he's had 10/10 pain, especially with movement, generalized abdominal pain and especially suprapubic pain. Patient states that he has had bleeding from around his catheter at the penis as well, but no blood noted in catheter bag. Patient took prescribed Percocet 7.5 approximately 1.5 hours [employer] without relief. History of Present Illness HPI narrative: This patient is a 67-year-old male with a history of prostate cancer status post prostatectomy on 04/30/2023 at [facility] as well as hypertension, diabetes, and CAD presenting to the emergency department for evaluation with concern for generalized abdominal pain, abdominal distention, and bleeding from around his catheter. He states that he feels a lot of pressure like he needs to have a bowel movement, but when he tries to go to have a bowel movement he is not able to, and with any straining, he has blood that rushes out around his Flores catheter. He notes that his Flores seems to still be draining well. His pain is severe and worse with movement. He took Percocet at home, which he was prescribed for surgery, with no improvement. He notes that he was passing gas initially, though he had not had a bowel movement since surgery, however as of late this afternoon, he stopped passing gas. He complains of nausea. He denies any fevers, chills, vomiting, or other concerns. He does currently have a Flores catheter in place. Related Data Previous Rx's Medication Instructions Recorded metoprolol succinate 25 mg 25 mg PO DAILY #30 tabs 08/16/21 tablet,extended release 24 hr azithromycin 250 mg tablet 250 mg PO UD DOSE PK #6 tabs 12/16/21 benzonatate 100 mg capsule 100 mg PO TIDP PRN Cough #30 caps 12/16/21 methylprednisolone 4 mg tablets in 4 mg PO DIRECTED 6 days #21 12/16
[2023-05-02 03:58] LABS: Chloride 102 mmol/L (98-107); Potassium 3.7 mmoL/L (3.5-5.1); Sodium 135 mmol/L (136-145)
[2023-05-02 04:01] LABS: Alanine Aminotransferase 31 U/L (12-78); Albumin Level 4.3 g/dl (3.5-5.0); Albumin/Globulin Ratio 1.5 (1.1-1.8); Alkaline Phosphatase 106 U/L (38-126); Anion Gap 8.7 mEq/L (5-15); Aspartate Amino Transferase 38 U/L (17-59); Bilirubin,Total 0.7 mg/dl (0.2-1.3); Blood Urea Nitrogen 14 mg/dl (9-20); Calcium 8.5 mg/dl (8.4-10.2); Carbon Dioxide 28 mmol/L (22.0-30.0); Creatinine Clearance Estimated 70 mL/min (50-200); Estimated Glomerular Filt Rate 55 ml/min (>60); GFR (African American) 66 ML/MIN (>60); Globulin 2.9 g/dL (1.3-3.2); Glucose 127 mg/dl (74-100); Total Protein,Serum 7.2 g/dl (6.3-8.2)
[2023-05-02 04:04] LABS: INR 1.02 (0.9-1.1)
[2023-05-02 04:05] LABS: Lipase 47 U/L (23-300)
[2023-05-02 04:14] LABS: Basophils % 0.3 % (0.1-2.0); Eosinophils # 0.1 K/mm3 (0.0-0.4); Eosinophils % 0.8 % (0.1-12.0); Hemoglobin 15.7 g/dL (14.1-18.0); Lymphocytes % 6.8 % (10-50); Mean Corpuscular HGB Conc 33.4 g/dL (31.8-35.4); Mean Corpuscular Hemoglobin 31.4 pg (27.0-31.2); Mean Platelet Volume 8.7 fl (7.4-10.4); Monocytes % 6.9 % (1.7-9.3); Neutrophils # 12.4 K/mm3 (1.8-7.8); Neutrophils % 85.2 % (37.0-80.0); Platelet Count 177 K/mm3 (142-424); Red Cell Distribution Width 13.7 % (11.5-17.5); White Blood Count 14.6 K/mm3 (4.8-10.8)
[2023-05-02 04:15] LABS: MANUAL DIFFERENTIAL MANUAL DIFFERENTIAL (MANUAL DIFF)
[2023-05-02 04:26] LABS: Lymphocytes % 9 % (10-50); Monocytes % 6 % (2-9); Neutrophils % 85 % (42-76); Platelet Estimate Normal; RBC Morphology Normal; Total Cells Counted 100
[2023-05-02 04:45] LABS: Lactic Acid 1.4 mmol/L (0.7-2.1)
[2023-05-02 05:35] VITALS: BP 141/84; PULSE 94; RESP 20; TEMP 36.8; O2SAT 94
== END 2023-05-02 05:35 | disposition home or self-care (01) ==
PROVIDERS: Emergency Provider Emergency Medicine; PCP Pain Medicine Interventional Pain Medicine
DX: R10.84 Generalized abdominal pain (principal); G89.18 Other acute postprocedural pain; R14.0 Abdominal distension (gaseous); K59.00 Constipation, unspecified; R11.0 Nausea; F17.210 Nicotine dependence, cigarettes, uncomplicated; I11.9 Hypertensive heart disease without heart failure; E78.5 Hyperlipidemia, unspecified; I25.10 Atherosclerotic heart disease of native coronary artery without angina pectoris; Z90.79 Acquired absence of other genital organ(s); Z85.46 Personal history of malignant neoplasm of prostate
CPT/HCPCS: 74177; 80053; 83605; 83690; 85007; 85025; 85610; 85730; 96361; 96374; 96375; 99285; J2405; Q9967

== ENCOUNTER 2023-06-07 19:41 | Emergency (ER) | payer MEDICARE, SELFPAY ==
[2023-06-07 19:42] VITALS: BP 153/96; PULSE 121; RESP 16; TEMP 36.5; O2SAT 96; BMI 26.6
--- NOTE | 2023-06-07 19:57 | ECG_ITS ---
APPROVED REPORT Exam: Resting ECG HR:96 bpm ECG Measurements Heart Rate 96 AXES TN 161 P 68 QRSd 89 QRS 66 QT 336 T 83 QTc 390 Conclusion SINUS RHYTHM MODERATE ST DEPRESSION [0.05+ mV ST DEPRESSION] ABNORMAL ECG UNCONFIRMED REPORT Electronically signed by : Amol Umanzor MD 06/08/2023 10:05:58
--- NOTE | 2023-06-07 20:00 | XR_ITS ---
PROCEDURE INFORMATION: Exam: XR Chest Exam date and time: 06/07/2023 8:32 PM Age: 68 years old Clinical indication: Shortness of breath; Additional info: SOA TECHNIQUE: Imaging protocol: Radiologic exam of the chest. Views: 1 view. COMPARISON: CR XR CHEST 2V 08/16/2021 7:25 PM FINDINGS: Lungs: Unremarkable. No consolidation. Pleural spaces: Unremarkable. No pleural effusion. No pneumothorax. Heart/Mediastinum: Unremarkable. No cardiomegaly. Bones/joints: Unremarkable. IMPRESSION: Stable chest x-ray with no acute disease.
[2023-06-07 20:11] LABS: Basophils # 0.1 K/mm3 (0-0.2); Basophils % 0.9 % (0.1-2.0); Eosinophils # 0.3 K/mm3 (0.0-0.4); Eosinophils % 5.5 % (0.1-12.0); Hematocrit 47.2 % (42.0-52.0); Hemoglobin 15.8 g/dL (14.1-18.0); Lymphocytes # 1.5 K/mm3 (0.7-4.5); Lymphocytes % 25.5 % (10-50); Mean Corpuscular HGB Conc 33.4 g/dL (31.8-35.4); Mean Corpuscular Hemoglobin 31.4 pg (27.0-31.2); Mean Platelet Volume 8.7 fl (7.4-10.4); Monocytes # 0.3 K/mm3 (0.1-1.0); Monocytes % 5.2 % (1.7-9.3); Neutrophils # 3.6 K/mm3 (1.8-7.8); Neutrophils % 62.8 % (37.0-80.0); Platelet Count 146 K/mm3 (142-424); Red Blood Count 5.02 M/mm3 (4.60-6.20); Red Cell Distribution Width 13.5 % (11.5-17.5); White Blood Count 5.8 K/mm3 (4.8-10.8)
[2023-06-07 20:15] LABS: Chloride 102 mmol/L (98-107); Sodium 138 mmol/L (136-145)
[2023-06-07 20:16] LABS: Potassium 3.9 mmoL/L (3.5-5.1)
[2023-06-07 20:18] LABS: Alanine Aminotransferase 32 U/L (12-78); Albumin Level 3.8 g/dl (3.5-5.0); Albumin/Globulin Ratio 1.4 (1.1-1.8); Alkaline Phosphatase 102 U/L (38-126); Anion Gap 11.9 mEq/L (5-15); Aspartate Amino Transferase 33 U/L (17-59); Bilirubin,Total 0.4 mg/dl (0.2-1.3); Blood Urea Nitrogen 14 mg/dl (9-20); Carbon Dioxide 28 mmol/L (22.0-30.0); Creatinine Clearance Estimated 69 mL/min (50-200); Estimated Glomerular Filt Rate 60 ml/min (>60); GFR (African American) 73 ML/MIN (>60); Globulin 2.8 g/dL (1.3-3.2); Lactic Acid 1.9 mmol/L (0.7-2.1); Total Protein,Serum 6.6 g/dl (6.3-8.2)
[2023-06-07 20:19] LABS: Calcium 8.5 mg/dl (8.4-10.2); Glucose 246 mg/dl (74-100)
[2023-06-07 20:36] LABS: Troponin I < 0.01 ng/ml (0.00-0.034)
[2023-06-07 21:00] VITALS: BP 118/82; PULSE 96; RESP 18; O2SAT 96
[2023-06-07 21:30] VITALS: BP 99/74; PULSE 94; O2SAT 95
--- NOTE | 2023-06-07 21:49 | CT_ITS ---
PROCEDURE INFORMATION: Exam: CTA Chest With Contrast Exam date and time: 06/07/2023 10:03 PM Age: 68 years old Clinical indication: Shortness of breath; Additional info: SOA, tachypnea, recent surgery TECHNIQUE: Imaging protocol: Computed tomographic angiography of the chest with contrast. Exam focused on the arteries. 3D rendering (Not supervised by radiologist): MIP and/or 3D reconstructed images were created by the technologist. Radiation optimization: All CT scans at this facility use at least one of these dose optimization techniques: automated exposure control; mA and/or kV adjustment per patient size (includes targeted exams where dose is matched to clinical indication); or iterative reconstruction. Contrast material: ISOCUE; Contrast volume: 75 ml; Contrast route: INTRAVENOUS (IV); COMPARISON: CR XR CHEST PORTABLE 06/07/2023 8:32 PM FINDINGS: Pulmonary arteries: Normal. No pulmonary emboli. Aorta: Unremarkable. No aortic aneurysm. No aortic dissection. Lungs: There are two 5 mm size nodules in the right middle lobe region on axial image 78 and 83 of series 5 that may be perifissural nodules. Lung pierre otherwise clear. Pleural spaces: Unremarkable. No pneumothorax. No pleural effusion. Heart: Unremarkable. No cardiomegaly. No pericardial effusion. Coronary arteries: Mild to moderate coronary artery calcifications suggesting coronary artery disease.. Lymph nodes: Unremarkable. No enlarged lymph nodes. Bones/joints: Unremarkable. No acute fracture. Soft tissues: Unremarkable. IMPRESSION: 1. No evident PE. No other acute findings. 2. Mild to moderate coronary artery calcifications suggesting coronary artery disease.. 3. Incidental right middle lobe nodules measuring up to 5 mm in size. For patients at low risk (minimal or absent history of smoking and of other known risk factors), no routine follow-up is indicated. For patients at high risk (history of smoking or of other known risk factors), consider optional CT Chest at 12 months. (Reference: Jon) References: Jon Art, et al. Guidelines for Management of Incidental Pulmonary Nodules Detected on CT Images: From the Fleischner Society 2017. Radiology. 2017;284(1):228-243.
--- NOTE | 2023-06-07 21:49 | CT_ITS ---
PROCEDURE INFORMATION: Exam: CT Abdomen And Pelvis With Contrast Exam date and time: 06/07/2023 10:03 PM Age: 68 years old Clinical indication: Abdominal pain; Additional info: Abdominal pain, fever, recent prostate surgery TECHNIQUE: Imaging protocol: Computed tomography of the abdomen and pelvis with contrast. Radiation optimization: All CT scans at this facility use at least one of these dose optimization techniques: automated exposure control; mA and/or kV adjustment per patient size (includes targeted exams where dose is matched to clinical indication); or iterative reconstruction. Contrast material: ISOVUE; Contrast volume: 75 ml; Contrast route: IV; COMPARISON: CT ABDOMEN PELVIS W CON 05/02/2023 4:29 AM and 10/30/2016 FINDINGS: Lungs: Lung bases are clear. Liver: A subcentimeter low-density lesion in the dome of the liver on image 21 of series 12 too small to characterize but likely cyst or some other benign process. This is stable dating back to 10/30/2016. Gallbladder and bile ducts: Status post cholecystectomy. No evident bile duct dilatation allowing for prior cholecystectomy. Pancreas: Normal. No ductal dilation. Spleen: Normal. No splenomegaly. Adrenal glands: Stable 14 mm left adrenal nodule compatible with adenoma. Kidneys and ureters: Stable 6.5 cm simple cyst in the lateral right kidney. Stable subcentimeter low-density lesions in the medial and lateral mid right kidney too small to characterize but likely cysts. No follow-up of these lesions advised. Stable small cyst in the anterior superior left kidney. No follow-up of this lesion advised. Indeterminate 11 mm low-density lesion with a density of 72 in the lateral mid left kidney on image 45 of series 12. Stomach and bowel: Multiple diverticula of the sigmoid and descending colon. Colon otherwise unremarkable with no evidence of diverticulitis. GI tract structures otherwise unremarkable with no evident wall thickening allowing for incomplete distention. Appendix: Appendix is normal. No evidence of appendicitis. Intraperitoneal space: Unremarkable. No free air. No significant fluid collection. Vasculature: Atherosclerotic changes of the aorta and iliacs noted. No evidence of aneurysm. Lymph nodes: Unremarkable. No enlarged lymph nodes. Urinary bladder: Bladder nondistended which limits assessment but is otherwise unremarkable. Reproductive: Status post recent prostatectomy. Bones/joints: Unremarkable. No acute fracture. Soft tissues: Unremarkable. IMPRESSION: 1. No acute abnormalities of the abdomen and pelvis. 2. Indeterminate 11 mm low-density lesion with a density of 72 in the lateral mid left kidney. Recommend non-emergent MRI without and with contrast or non-emergent CT without and with contrast. MRI is preferred for masses under 1.5 cm. 3. Additional nonemergent findings as above. T COMMENTS: Consistent with the [employer]'s Incidental Findings Committee white paper (J Am Storm Radiol 2018): Any incidental renal lesion less than 1 cm or classified as too small to characterize, or any incidental cystic renal lesion characterized as simple-appearing, is likely benign. No follow-up imaging is recommended for these lesions per consensus recommendations based on imaging criteria.
--- NOTE | 2023-06-07 21:54 | HMH.EDGENADL ---
Discharge Plan Disposition Patient Disposition: Home, Self-Care Condition: Fair Prescriptions Prescriptions: New albuterol sulfate 90 mcg/actuation HFA aerosol inhaler 4 inh inhalation Q3H PRN (Reason: shortness of breath or wheezing) Qty: 8.5 0RF Rx Instructions: until breathing returns to target peak flow/parameters doxycycline monohydrate 100 mg capsule 100 mg PO BID 7 Days Qty: 14 0RF prednisone 50 mg tablet 50 mg PO DAILY 5 Days Qty: 5 0RF No Action pioglitazone 15 mg tablet 15 mg PO DAILY rosuvastatin 40 mg tablet 40 mg PO HS metoprolol succinate 25 MG tablet extended release 24 hr 25 mg PO DAILY Qty: 30 0RF Referrals Follow up/Referrals: Harmony Lutz MD [Primary Care Provider] - See instructions Activity Restrictions/Add. Instructions Additional Instructions/Restrictions: Please return to the emergency department if you experience any new or worsening symptoms. Clinical Impressions Clinical Impression: COPD exacerbation Stand Alone Forms Stand Alone Forms: Work/School Release Instructions Patient Instructions: DI for Chronic Obstructive Pulmonary Disease Discharge ED Provider: Curtis De Paz Adult HPI General Chief complaint: Shortness of Breath/Dyspnea Stated complaint: lung pain, cough, SOA, congestion Time Seen by Provider: 06/07/23 20:01 Mode of Arrival: Ambulatory Source of Information: Patient Limitations: No Limitations Description of Symptoms (Recalled from ER Triage Doc. by RN): pt c/o SOA,cough,chest congestion X 1 week that isn't getting better. History of Present Illness HPI narrative: Patient has shortness of breath, cough, some associated chest pain that is intermittent, and nonpleuritic, nonexertional, nonradiating, with documented fevers to approximately 101 ?F at home, this was all gradual in onset over the course of the past week. He does report recent prostate surgery. He denies any personal or family history of DVT or PE. No leg pain or leg swelling. He does report chronic abdominal pain postoperatively but no worsening symptoms. He has been able to tolerate p.o. No nausea or vomiting. No diarrhea. No recent antibiotics. Does describe smoking history. Upon questioning admits to known diagnosis of COPD. He denies any history of COPD exacerbations. Denies any coronary history. Denies any associated palpitations. Pain is described as substernal, dull, nonradiating. No previous therapies. His abdominal pain is generalized. He has noted no skin changes or drainage from surgical incision sites. Related Data Home Medications Medication Instructions Recorded Confirmed pioglitazone 15 mg tablet 15 mg PO DAILY 06/07/23 06/07/23 rosuvastatin 40 mg tablet 40 mg PO HS 06/07/23 06/07/23 Previous Rx's Medication Instructions Recorded metoprolol succinate 25 mg 25 mg PO DAILY #30 tabs 08/16/21 tablet,extended release 24 hr albuterol sulfate 90 mcg/actuation 4 inh inhalation Q3H PRN shortness 06/07/23 aerosol inhaler of breath or wheezing #8.5 grams doxycycline monohydrate 100 mg 100 mg PO BID 7 days #14 caps 06/07/23 capsule prednisone 50 mg tablet 50 mg PO DAILY 5 days #5 tabs 06/07/23 Allergies Allergy/AdvReac Type Severity Reaction Status Date / Time No Known Allergies Allergy Unverified 05/26/17 11:34 [facility] Disclaimer: The information contained in this section may have been updated after the patient was seen, as this information can be updated by other users. Social History Smoking Status: Current every day smoker alcohol intake: never current occupational status: employed Travel in the last 8 weeks: None ROS Obtained: Yes Systems reviewed as appropriate & no additional complaints except as documented As per HPI Physical Exam General General appearance: alert and in no apparent distress Head Head exam: atraumatic and normocephalic Eye Eye exam: Present normal appearance Neck Neck exam: Present normal inspection Chest Chest inspection: Present normal inspection and symmetric chest wall rise Respiratory Respiratory exam: Present wheezes; Absent respiratory distress Cardiovascular Cardiovascular exam: Present regular rate and tachycardia Abdominal Exam Abdominal exam: Present soft and other (Surgical incision sites well-healing, generalized mild tenderness to palpation with no guarding or rigidity) Neurological Exam Neurological exam: Present alert and oriented X3 Psychiatric Psychiatric exam: Present normal affect and normal mood Skin Skin exam: Present warm and dry Medical Decision Making Medical Records Medical records reviewed: Yes I reviewed the patient's medical records. Kaveh Inquiry Pt receiving controlled substance: No Vital Signs: 06/07/23 19:42 06/07/23 21:00 06/07/23 21:30 Temperature 97.7 F Temperature Source Oral Pulse Rate 96 H 94 H Pulse Rate [Right] 121 H Respiratory Rate 16 18 Blood Pressure 118/82 99/74 L Blood Pressure [Right Arm] 153/96 H Blood Pressure Mean 94 82 Blood Pressure Mean [Right Arm] 115 02 Sat by Pulse Oximetry 96 96 95 06/07/23 23:00 06/07/23 23:28 Temperature 97.7 F Temperature Source Oral Pulse Rate 90 90 Pulse Rate [Right] Respiratory Rate 15 15 Blood Pressure 108/77 L 105/79 L Blood Pressure [Right Arm] Blood Pressure Mean 87 Blood Pressure Mean [Right Arm] 02 Sat by Pulse Oximetry 95 Lab Data Lab Results 06/07/23 19:53: WBC 5.8, RBC 5.02, Hgb 15.8, Hct 47.2, MCV 94.0, MCH 31.4 H, MCHC 33.4, RDW 13.5, Plt Count 146, MPV 8.7, Neut % (Auto) 62.8, Lymph % (Auto) 25.5, [place] % (Auto) 5.2, Eos % (Auto) 5.5, Baso % (Auto) 0.9, Neut # (Auto) 3.6, Lymph # (Auto) 1.5, [place] # (Auto) 0.3, Eos # (Auto) 0.3, Baso # (Auto) 0.1, Sodium 138, Potassium 3.9, Chloride 102, Carbon Dioxide 28, Anion Gap 11.9, BUN 14, Creatinine 1.20, Estimated Creat Clear 69, Estimated GFR 60, Est GFR ( Amer) 73, Glucose 246 H, Lactate 1.9, Calcium 8.5, Total Bilirubin 0.4, AST 33, ALT 32, Alkaline Phosphatase 102, Troponin I < 0.01, Total Protein 6.6, Albumin 3.8, Globulin 2.8, Albumin/Globulin Ratio 1.4 06/07/23 19:53 06/07/23 19:53 Orders (Tests/Meds): ED MEDICATIONS Discontinued Medications Generic Name Dose Route Start Last Admin Trade Name Freq PRN Reason Stop Dose Admin Iopamidol 100 ml 06/07/23 22:27 06/07/23 22:29 Iopamidol-370 (76%);100ml Bottle IV 06/07/23 22:28 100 ml ONCE ONE Administration Sodium Chloride 40 ml 06/07/23 22:27 06/07/23 22:29 Sodium Chloride 0.9% 50ml Bag IV 06/07/23 22:28 40 ml ONCE ONE Administration ORDERS Category Date Time Status CT abdomen pelvis w con Stat Cat Scan 06/07/23 21:49 Completed CTA Chest [CT angio chest PE protocol] Stat Cat Scan 06/07/23 21:49 Completed XR chest portable Stat Exams 06/07/23 20:00 Completed Complete Blood Count Auto Diff Stat Lab 06/07/23 19:53 Completed Comprehensive Metabolic Panel Stat Lab 06/07/23 19:53 Completed Lactic Acid Stat Lab 06/07/23 19:53 Completed Troponin I Stat Lab 06/07/23 19:53 Completed Blood Culture Stat Micro 06/07/23 20:18 Received ECG initial [place] Routine Y 06/07/23 19:57 Completed HEART Score History (anamnesis): Moderately suspicious ECG: Non-specific disturbance Age: >65 years Risk factors: Atherosclerosis history Troponin: </= normal limit HEART Score: 6 Medical Decision Narrative: Patient with history and exam per above presenting for evaluation of chest pain, shortness of breath, abdominal pain, fever, in the setting of recent surgery Diagnoses considered include pulmonary embolism, postoperative infection, ACS, pneumonia, COPD exacerbation ED workup and treatment included: ED MEDICATIONS Discontinued Medications Generic Name Dose Route Start Last Admin Trade Name Freq PRN Reason Stop Dose Admin Iopamidol 100 ml 06/07/23 22:27 06/07/23 22:29 Iopamidol-370 (76%);100ml Bottle IV 06/07/23 22:28 100 ml ONCE ONE Administration Sodium Chloride 40 ml 06/07/23 22:27 06/07/23 22:29 Sodium Chloride 0.9% 50ml Bag IV 06/07/23 22:28 40 ml ONCE ONE Administration ORDERS Category Date Time Status CT abdomen pelvis w con Stat Cat Scan 06/07/23 21:49 Completed CTA Chest [CT angio chest PE protocol] Stat Cat Scan 06/07/23 21:49 Completed XR chest portable Stat Exams 06/07/23 20:00 Completed Complete Blood Count Auto Diff Stat Lab 06/07/23 19:53 Completed Comprehensive Metabolic Panel Stat Lab 06/07/23 19:53 Completed Lactic Acid Stat Lab 06/07/23 19:53 Completed Troponin I Stat Lab 06/07/23 19:53 Completed Blood Culture Stat Micro 06/07/23 20:18 Received ECG initial [place] Routine Y 06/07/23 19:57 Completed Labs were independently interpreted by me, significant for hyperglycemia, no leukocytosis, troponins within normal limits x 2 EKG was independently visualized and interpreted by me significant for normal axis, sinus rhythm, nonspecific ST depression Imaging was independently visualized and interpreted by me, significant for no pulmonary embolism, known chronic findings which were reported the patient including findings concerning for CAD, and nodular lesion Symptoms at this time are thought to be most consistent with COPD exacerbation given wheezing, dyspnea, and otherwise reassuring workup. 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 I discussed my clinical impression with patient and answered all questions. At this time, given reassuring workup and exam, I discussed that I have a low index of suspicion for any acute pathology necessitating inpatient management. Specific return precautions were given, with understanding and agreement. Patient will follow up with primary care provider as needed. Patient was prescribed course of doxycycline as well as albuterol inhaler, course of prednisone. Critical Care Critical Care Time Critical Care Time: No
--- NOTE | 2023-06-07 21:58 | PC.NURSE ---
pt to radiology
--- NOTE | 2023-06-07 22:13 | PC.NURSE ---
patient back from CT at this time
[2023-06-07] MEDS: SODIUM CHLORIDE 0.9% 50ML BAG 40 ML IV (22:29)
[2023-06-07] MEDS: IOPAMIDOL-370 (76%);100ML BOTTLE 100 ML IV (22:29)
[2023-06-07 23:00] VITALS: BP 108/77; PULSE 90; RESP 15; O2SAT 95
[2023-06-07 23:28] VITALS: BP 105/79; PULSE 90; RESP 15; TEMP 36.5; O2SAT 95
== END 2023-06-07 23:29 | disposition home or self-care (01) ==
PROVIDERS: Emergency Provider Emergency Medicine; PCP Family Medicine
DX: J44.1 Chronic obstructive pulmonary disease with (acute) exacerbation (principal); R06.02 Shortness of breath; R05.9 Cough, unspecified; F17.200 Nicotine dependence, unspecified, uncomplicated; R07.89 Other chest pain
CPT/HCPCS: 71045; 71275; 74177; 80053; 83605; 84484; 85025; 87040; 93005; 99285; Q9967

== ENCOUNTER 2024-09-22 23:52 | Emergency (ER) | payer MEDICARE, SELFPAY ==
[2024-09-22 23:58] VITALS: BP 142/86; PULSE 103; RESP 20; TEMP 36.9; O2SAT 100; BMI 29.1
--- NOTE | 2024-09-22 23:59 | XR_ITS ---
PROCEDURE INFORMATION: Exam: XR Right Elbow Exam date and time: 09/23/2024 12:04 AM Age: 69 years old Clinical indication: Pain; Elbow; Right; Additional info: Elbow pain after lifting at work TECHNIQUE: Imaging protocol: Radiologic exam of the right elbow. Views: 3 or more views. Total images: 3 COMPARISON: CR XR HAND RT MIN 3V 07/06/2019 12:29 AM FINDINGS: Bones/joints: No acute fracture, joint dislocation, or joint effusion. Mild degenerative arthropathy. Numerous tiny loose intra-articular bodies. No concerning bone lesions. Soft tissues: Unremarkable soft tissues. IMPRESSION: 1. No acute osseous abnormality or joint effusion 2. Mild degenerative arthropathy 3. Numerous tiny loose intra-articular bodies.
--- OUTSIDE RECORDS SUMMARY | 2024-09-22 23:59 | XMS_ITS | Data Portability ---
Author Organization [facility] Fox BIS[facility]E CLOSED Address [address] [place] [address] Care Team Providers Care Skimmer Name Role Phone SAWYER MAE Primary Care Provider [phone] Assessment No assessment recorded. Plan of Treatment Reminders Order Date Submit Date Provider Last Modified By Organization Details Last Modified Time Details Appointments RECHECK 2024 09:00A M CHIRAG AUSTIN MD Not available Not available Not available Lab urinalysi s panel, auto 2023 024 [facility], [address], [place], [address], 05/23/2024 10:37:59 PSA, serum or plasma 2023 024 [facility], [address], [address], [place], [address], 05/23/2024 10:37:59 urinalysi s panel, auto 2023 024 [facility], [address], [address], [place], [address], 11/20/2023 08:46:45 PSA, serum or plasma 2023 024 [facility], [address], [address], [place], [address], 09/15/2023 10:08:54 urinalysi s panel, auto 2023 024 [facility], [address], [address], [place], [address], 09/03/2023 09:50:03 PSA, serum or plasma 2023 024 [facility], [address], [address], [place], [address], 09/03/2023 09:50:04 Referral None recorded. Procedures None recorded. Surgeries None recorded. Imaging None recorded. Medication Orders None recorded. Patient TargetsNo targets recorded. Patient InstructionsNo instructions recorded. Reason for Referral None Reported. Results Created Date Observation Date Name Description Value Unit Range Abnormal Flag Note LastModifiedBy Organization Detail LastModifiedTime 08/19/1908/19/2023 PSA, serum or plasm a PSA <0.04 NG/mL 0.0 - 4.0 Not Available [facility] [address], [place], [address], 08/19/2023 10:14:44 08/19/1908/19/2023 urina lysis panel , auto Unknown Analyte Clean Catch Not Available [facility] [address], [place], [address], 08/19/2023 09:52:46 08/19/1908/19/2023 urina lysis panel , auto Unknown Analyte Yellow Not Available [facility] [address], [place], [address], 08/19/2023 09:52:46 08/19/19 24 08/19/2023 urina lysis panel , auto Unknown Analyte Clear Not Available [facility] [address], [place], [address], 08/19/2023 09:52:46 08/19/19 24 08/19/2023 urina lysis panel , auto Unknown Analyte 1.010 Not Available [facility] [address], [place], [address], 08/19/2023 09:52:46 08/19/19 24 08/19/2023 urina lysis panel , auto Unknown Analyte 1.003- 1.035 Not Available [facility] [address], [place], [address], 08/19/2023 09:52:46 08/19/19 24 08/19/2023 urina lysis panel , auto Unknown Analyte 5.0 Not Available [facility] [address], [place], [address], 08/19/2023 09:52:46 08/19/19 24 08/19/2023 urina lysis panel , auto Unknown Analyte 5.0-8. 0 Not Available [facility] [address], [place], [address], 08/19/2023 09:52:46 08/19/19 24 08/19/2023 urina lysis panel , auto Unknown Analyte Negati ve Not Available [facility] [address], [place], [address], 08/19/2023 09:52:46 08/19/19 24 08/19/2023 urina lysis panel , auto Unknown Analyte Negati ve Not Available [facility] [address], [place], [address], 08/19/2023 09:52:46 08/19/19 24 08/19/2023 urina lysis panel , auto Unknown Analyte Negati ve Not Available [facility] [address], [place], [address], 08/19/2023 09:52:46 08/19/19 24 08/19/2023 urina lysis panel , auto Unknown Analyte Negati ve Not Available [facility] [address], [place], [address], 08/19/2023 09:52:46 08/19/19 24 08/19/2023 urina lysis panel , auto Unknown Analyte Negati ve Not Available [facility] [address], [place], [address], 08/19/2023 09:52:46 08/19/19 24 08/19/2023 urina lysis panel , auto Unknown Analyte Negati ve Not Available [facility] [address], [place], [address], 08/19/2023 09:52:46 08/19/19 24 08/19/2023 urina lysis panel , auto Unknown Analyte Normal Not Available [facility] [address], [place], [address], 08/19/2023 09:52:46 08/19/19 24 08/19/2023 urina lysis panel , auto Unknown Analyte Normal Not Available [facility] [address], [place], [address], 08/19/2023 09:52:46 08/19/19 24 08/19/2023 urina lysis panel , auto Unknown Analyte Negati ve Not Available [facility] [address], [place], [address], 08/19/2023 09:52:46 08/19/19 24 08/19/2023 urina lysis panel , auto Unknown Analyte Negati ve Not Available [facility] [address], [place], [address], 08/19/2023 09:52:46 08/19/19 24 08/19/2023 urina lysis panel , auto Unknown Analyte Normal Not Available [facility] [address], [place], [address], 08/19/2023 09:52:46 08/19/19 24 08/19/2023 urina lysis panel , auto Unknown Analyte Normal 1 mg/dl Not Available [facility] [address], [place], [address], 08/19/2023 09:52:46 08/19/19 24 08/19/2023 urina lysis panel , auto Unknown Analyte Negati ve Not Available [facility] [address], [place], [address], 08/19/2023 09:52:46 08/19/19 24 08/19/2023 urina lysis panel , auto Unknown Analyte Negati ve Not Available [facility] [address] [facility] [address] [facility] [address], [place], [address], 08/19/2023 09:52:46 08/19/19 24 08/19/2023 urina lysis panel , auto Unknown Analyte Negati ve Not Available [facility] [address], [place], [address], 08/19/2023 09:52:46 08/19/19 24 08/19/2023 urina lysis panel , auto Unknown Analyte Negati ve Not Available [facility] [address], [place], [address], 08/19/2023 09:52:46 09/12/19 24 09/12/2023 PSA, serum or plasm a PSA <0.04 NG/mL 0.0 - 4.0 Not Available [facility] [address], [place], [address], 09/12/2023 14:30:12 11/20/19 24 11/20/2023 urina lysis panel , auto Unknown Analyte Clean Catch Not Available [facility] [address] [facility] [address], [place], [address], 11/20/2023 08:43:07 11/20/19 24 11/20/2023 urina lysis panel , auto Unknown Analyte Yellow Not Available [facility] [address] [facility] [address], [place], [address], 11/20/2023 08:43:07 11/20/19 24 11/20/2023 urina lysis panel , auto Unknown Analyte Clear Not Available [facility] [address], [place], [address], 11/20/2023 08:43:07 11/20/19 24 11/20/2023 urina lysis panel , auto Unknown Analyte 1.015 Not Available [facility] [address], [place], [address], 11/20/2023 08:43:07 11/20/1911/20/2023 urina lysis panel , auto Unknown Analyte 1.003- 1.035 Not Available [facility] [address], [place], [address], 11/20/2023 08:43:07 11/20/19 24 11/20/2023 urina lysis panel , auto Unknown Analyte 5.0 Not Available [facility] [address], [place], [address], 11/20/2023 08:43:07 11/20/19 24 11/20/2023 urina lysis panel , auto Unknown Analyte 5.0-8. 0 Not Available [facility] [address], [place], [address], 11/20/2023 08:43:07 11/20/1911/20/2023 urina lysis panel , auto Unknown Analyte Negati ve Not Available [facility] [address], [place], [address], 11/20/2023 08:43:07 11/20/19 24 11/20/2023 urina lysis panel , auto Unknown Analyte Negati ve Not Available [facility] [address], [place], [address], 11/20/2023 08:43:07 11/20/19 24 11/20/2023 urina lysis panel , auto Unknown Analyte Negati ve Not Available [facility] [address], [place], [address], 11/20/2023 08:43:07 11/20/19 24 11/20/2023 urina lysis panel , auto Unknown Analyte Negati ve Not Available [facility] [address], [place], [address], 11/20/2023 08:43:07 11/20/19 24 11/20/2023 urina lysis panel , auto Unknown Analyte Negati ve Not Available [facility] [address], [place], [address], 11/20/2023 08:43:07 11/20/19 24 11/20/2023 urina lysis panel , auto Unknown Analyte Negati ve Not Available [facility] [address], [place], [address], 11/20/2023 08:43:07 11/20/19 24 11/20/2023 urina lysis panel , auto Unknown Analyte 50 mg/dl Not Available [facility] [address], [place], [address], 11/20/2023 08:43:07 11/20/19 24 11/20/2023 urina lysis panel , auto Unknown Analyte Normal Not Available [facility] [address], [place], [address], 11/20/2023 08:43:07 11/20/19 24 11/20/2023 urina lysis panel , auto Unknown Analyte Negati ve Not Available [facility] [address], [place], [address], 11/20/2023 08:43:07 11/20/19 24 11/20/2023 urina lysis panel , auto Unknown Analyte Negati ve Not Available [facility] [address], [place], [address], 11/20/2023 08:43:07 11/20/19 24 11/20/2023 urina lysis panel , auto Unknown Analyte Normal Not Available [facility] [address], [place], [address], 11/20/2023 08:43:07 11/20/19 24 11/20/2023 urina lysis panel , auto Unknown Analyte Normal 1 mg/dl Not Available [facility] [address], [place], [address], 11/20/2023 08:43:07 11/20/19 24 11/20/2023 urina lysis panel , auto Unknown Analyte Negati ve Not Available [facility] [address], [place], [address], 11/20/2023 08:43:07 11/20/19 24 11/20/2023 urina lysis panel , auto Unknown Analyte Negati ve Not Available [facility] [address], [place], [address], 11/20/2023 08:43:07 11/20/19 24 11/20/2023 urina lysis panel , auto Unknown Analyte Negati ve Not Available [facility] [address], [place], [address], 11/20/2023 08:43:07 11/20/19 24 11/20/2023 urina lysis panel , auto Unknown Analyte Negati ve Not Available [facility] [address], [place], [address], 11/20/2023 08:43:07 05/21/20 24 05/21/2024 PSA, serum or plasm a PSA <0.04 NG/mL 0.0 - 4.0 Not Available [facility] [address], [place], [address], 05/21/2024 09:16:03 05/21/20 24 05/21/2024 urina lysis panel , auto Unknown Analyte Clean Catch Not Available [facility] [address], [place], [address], 05/21/2024 08:51:48 05/21/20 24 05/21/2024 urina lysis panel , auto Unknown Analyte Yellow Not Available [facility] [address], [place], [address], 05/21/2024 08:51:48 05/21/20 24 05/21/2024 urina lysis panel , auto Unknown Analyte Clear Not Available [facility] [address], [place], [address], 05/21/2024 08:51:48 05/21/20 24 05/21/2024 urina lysis panel , auto Unknown Analyte 1.015 Not Available [facility] [address], [place], [address], 05/21/2024 08:51:48 05/21/20 24 05/21/2024 urina lysis panel , auto Unknown Analyte 1.003- 1.035 Not Available [facility] [address], [place], [address], 05/21/2024 08:51:48 05/21/20 24 05/21/2024 urina lysis panel , auto Unknown Analyte 6.0 Not Available [facility] [address], [place], [address], 05/21/2024 08:51:48 05/21/20 24 05/21/2024 urina lysis panel , auto Unknown Analyte 5.0-8. 0 Not Available [facility] [address], [place], [address], 05/21/2024 08:51:48 05/21/20 24 05/21/2024 urina lysis panel , auto Unknown Analyte Negati ve Not Available [facility] [address], [place], [address], 05/21/2024 08:51:48 05/21/20 24 05/21/2024 urina lysis panel , auto Unknown Analyte Negati ve Not Available [facility] [address], [place], [address], 05/21/2024 08:51:48 05/21/20 24 05/21/2024 urina lysis panel , auto Unknown Analyte Negati ve Not Available [facility] [address], [place], [address], 05/21/2024 08:51:48 05/21/20 24 05/21/2024 urina lysis panel , auto Unknown Analyte Negati ve Not Available [facility] [address], [place], [address], 05/21/2024 08:51:48 05/21/20 24 05/21/2024 urina lysis panel , auto Unknown Analyte Negati ve Not Available [facility] [address], [place], [address], 05/21/2024 08:51:48 05/21/20 24 05/21/2024 urina lysis panel , auto Unknown Analyte Negati ve Not Available [facility] [address], [place], [address], 05/21/2024 08:51:48 05/21/20 24 05/21/2024 urina lysis panel , auto Unknown Analyte Normal Not Available [facility] [address], [place], [address], 05/21/2024 08:51:48 05/21/20 24 05/21/2024 urina lysis panel , auto Unknown Analyte Normal Not Available [facility] [address], [place], [address], 05/21/2024 08:51:48 05/21/20 24 05/21/2024 urina lysis panel , auto Unknown Analyte Negati ve Not Available [facility] [address], [place], [address], 05/21/2024 08:51:48 05/21/20 24 05/21/2024 urina lysis panel , auto Unknown Analyte Negati ve Not Available [facility] [address], [place], [address], 05/21/2024 08:51:48 05/21/20 24 05/21/2024 urina lysis panel , auto Unknown Analyte Normal Not Available [facility] [address], [place], [address], 05/21/2024 08:51:48 05/21/20 24 05/21/2024 urina lysis panel , auto Unknown Analyte Normal 1 mg/dl Not Available [facility] [address], [place], [address], 05/21/2024 08:51:48 05/21/20 24 05/21/2024 urina lysis panel , auto Unknown Analyte Negati ve Not Available [facility] [address], [place], [address], 05/21/2024 08:51:48 05/21/20 24 05/21/2024 urina lysis panel , auto Unknown Analyte Negati ve Not Available [facility] [address] [facility] [address], [place], [address], 05/21/2024 08:51:48 05/21/20 24 05/21/2024 urina lysis panel , auto Unknown Analyte Negati ve Not Available [facility] [address] [facility] [address], [place], [address], 05/21/2024 08:51:48 05/21/20 24 05/21/2024 urina lysis panel , auto Unknown Analyte Negati ve Not Available [facility] [address] [facility] [address], [place], [address], 05/21/2024 08:51:48 04/29/20 23 04/29/2023 elect rocar diogr am inter preta tion* No observ ation record ed. [email or web address] Not Available 2022 13:34:22 05/13/20 23 05/13/2023 XR, cysto gram [facility] [address] [facility] [place] [address] Patiliz gagnon Name: SAGE gagnon : 1954 Willis gagnon 2 Orderi ng Provid er: CHIRAG ENGLISH EXAM DATE: 2022 EXAM: RF CYSTOG [facility] INFORM ATION: Post prosta tectom y IMAGES PROVID ED: Under fluoro scopic contro l, Cystog rafin 18% 150 mL (150 mL from a 300 mL bottle of [facility] [address]-3 0; 150 mL was wasted and discar ded.) was instil led into the bladde r throug h the [facility] Flores' s cathet er until comple tely full. Full bladde r images were obtain ed.The bladde r was then allowe d to empty and more images were obtain ed of the empty bladde r. COMPAR RONY: None. 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 URINAR Y BLADDE R: Urinar y bladde r is normal in capaci ty and outlin e. No divert icula are seen. No fillin g defect s are presen t. Some extrav asatio n is seen into the prosta tic bed. IMPRES MORIAH: Mild to modera te extrav asatio n into the prosta te bed. Interp reted By: Michael Augustine MD Electr onical ly Signed By: Michael Augustine MD on 2022 11:09 AM [facility] [address] [place], [address], 05/14/2023 16:26:36 Result Notes None recorded. Problems Name Problem SNOMED Code Status Onset Date Resolution Date Notes Provider Name and Address Organization Details Recorded Time Malignant tumor of prostate 759867106 Active 023 CHIRAG UASTIN JR, MD [address] [place] [address], [address] [place] [address] 20:25:29 Problem Notes None recorded. Procedures Surgical History Date Name Laterality Status Provider Name and Address Organization Details Recorded Time 04/30/20 23 PROSTATECTOMY WITH BILATERAL PELVIC LYMPH NODE DISSECTION, ROBOT ASSISTED LAPAROSCOPIC (SURG) completed Huan Slater [facility] 05/02/2023 13:06:31 procedure on gallbladder completed Zurdo Pollack [facility] 03/21/2023 09:12:52 Imaging Results Imaging Date Name Status LastModified by Organization Details LastModified Time 04/29/2023 electrocardiogram interpretation* completed [facility] Information not available 04/30/2023 13:34:22 05/13/2023 XR, cystogram completed [facility] [address] [place] [address], [address], 05/14/2023 16:26:36 Procedure Notes None recorded. Medical Equipment None Reported. Allergies No known drug allergies Medications Name Sig Start Date Stop Date Status Note LastModified by Organization Details LastModified Time nitrofurantoin macrocrystal 100 mg capsule active Not Available Not Availab le Not Available metoprolol succinate active Not Available Not Available No t Available pioglitazone active Not Available Not Available Not Available rosuvastatin 40 mg sprinkle capsule Take 1 capsule every day by oral route. active Not Available Not Available No t Available Vitals Date Recorded Body height Body mass index (BMI) Body weight Provider Name and Address Organization Details Last Updated DateTime 05/20/2023 177.8 cm 28.7 kg/m2 49621.47 g Zurdo Broderickshaw [facility] 05/20/2023 10:15:59 Date Recorded Body height Body mass index (BMI) Body weight Provider Name and Address Organization Details Last Updated DateTime 08/19/2023 177.8 cm 29 kg/m2 46244.66 g Chen Seferino [facility] 08/19/2023 09:33:50 Date Recorded Body height Body mass index (BMI) Body weight Provider Name and Address Organization Details Last Updated DateTime 11/20/2023 177.8 cm 27.3 kg/m2 11909.55 g Chen Seferino [facility] 11/20/2023 08:33:07 Date Recorded Body height Body mass index (BMI) Body weight Provider Name and Address Organization Details Last Updated DateTime 05/21/2024 180.34 cm 28.5 kg/m2 86652.84 g Jenifer Gibbs [facility] 05/21/2024 13:49:32 Social History Question Answer Notes LastModified by Organizat ion Details LastModified Time Tobacco Smoking Status Former Smoker Zurdo Broderickshaw [facility] 03/21/2023 09:12:38 What Is Your Level Of Alcohol Consumption? Occasional Information not available 03/21/2023 Are You Currently Employed? Yes [email or web address] Information not available 03/21/2023 What Is Your Relationship Status? [email or web address] Information not available 03/21/2023 Do You Use Any Illicit Or Recreational Drugs? No Information not available 03/21/2023 Has Tobacco Cessation Counseling Been Provided? No [email or web address] Information not available 03/21/2023 Do You Or Have You Ever Used Any Other Forms Of Tobacco Or Nicotine? No [email or web address] Information not available 03/21/2023 Sex: Unknown Functional Status None recorded. Mental Status None recorded. Family History Relationship Description Onset Age of this Age Resolved Age Notes LastModified by Organization Details LastModified Time Mother Diabetes mellitus [email or web address] Not available 03/03 09:11:52 Unspecified Relation Family history of malignant neoplasm [email or web address] Not available 03/03 09:12:12 Medical History Condition Response Arthritis Y High Cholesterol Y Glaucoma Y Past Encounters Encounter ID Performer Location Encounter Start Date Encounter Closed Date Diagnosis/Indication Diagnosis SNOMED-CT Code Diagnosis ICD10 Code Diagnosis Note [id number] CIHRAG AUSTIN JR, MD [facility] [address] [place] [address] 03/21/2023 08:33:42 03/21/2023 08:59:14 Malignant tumor of prostate [id number] C61 [id number] CHIRAG AUSTIN JR, MD [facility] [address] [place] [address] 05/13/2023 09:27:34 05/13/2023 10:12:34 Malignant tumor of prostate [id number] C61 [id number] CHIRAG AUSTIN JR, MD [facility] [address] [place] [address] 05/20/2023 10:01:21 05/20/2023 10:25:38 Malignant tumor of prostate [id number] C61 [id number] CHIRAG AUSTIN JR, MD [facility] [address] [place] [address] 08/19/2023 09:21:46 08/19/2023 09:45:13 Malignant tumor of prostate [id number] C61 [id number] CHIRAG AUSTIN JR, MD [facility] [address] [place] [address] 09/12/2023 13:53:42 09/12/2023 14:03:01 Malignant tumor of prostate [id number] C61 [id number] CHIRAG AUSTIN JR, MD [facility] [address] [place] [address] 11/20/2023 08:17:22 11/20/2023 08:47:41 Malignant tumor of prostate [id number] C61 [id number] CHIRAG AUSTIN JR, MD [facility] [address] [place] [address] 05/21/2024 08:03:03 05/29/2024 14:00:57 Malignant tumor of prostate [id number] C61 Health Concerns Section Related Observation LastModified by Organization Detai ls LastModified Time None Recorded Concern Status LastModified by Organization Details LastModified Time None Recorded Advance Directives Directive None Recorded Payers Encounter Date Sequence Insurance Name Policy Number Policy Bennett Covered Member ID Bennett Member ID Guarantor Name 05/20/2023 1 [place] [id number] [id number] [facility] 08/19/2023 1 [id number] [facility] [place] [id number] [facility] 09/12/2023 1 [id number] [facility] [place] [id number] [facility] 11/20/2023 1 [id number] [facility] [place] [id number] [facility] 05/21/2024 1 [place] [id number] [facility] [place] [id number] [facility] Loc Notes Date Note Type Note Provider Name and Address Organization Details Recorded Time 05/20/2023 text/html F/u ACP. [facility] 04/30/23. Path: ACP 3+4=7, T2c, negative margins, negative lymph nodes. Trial of void today CHIRAG AUSTIN JR, MD [address] [place], [address], [facility] 06/01/2023 11:38:46 08/19/2023 text/html [facility] Path: ACP 3+4=7, T2c, negative margins, negative lymph nodes. Urinary incontinence is improving greatly CHIRAG AUSTIN JR, MD [address] [place], [address], [facility] 09/03/2023 09:50:08 11/20/2023 text/html F/u ACP. [facility] 04/30/23. Path: ACP 3+4=7, T2c, negative margins, negative lymph nodes. Urinary incontinence is improving greatly CHIRAG AUSTIN JR, MD [address] [place], [address], [facility] 11/20/2023 08:46:47 05/21/2024 text/html F/u ACP. [facility] 04/30/23. Path: ACP 3+4=7, T2c, negative margins, negative lymph nodes. Urinary control is good. CHIRAG AUSTIN JR, MD [address] [place], [address], [facility] 05/23/2024 10:38:01
--- OUTSIDE RECORDS SUMMARY | 2024-09-22 23:59 | XMS_ITS | Data Portability ---
Author Organization [place] [facility] [place] [facility] ADMIN Address [address] [place] [address] Care Team Providers Care Departmental Secretary Name Role Phone SAWYER LUTZ Primary Care Provider Assessment Encounter Date Assessment Date Assessment LastModified by Organization Details LastModified Time 10/01/2022 10/01/2022 I have discussed data with the patient. It has been a period of time since he has had a imaging study of his prostate. Will therefore moved to prostate MRI with renal panel and follow-up to discuss results as soon as this is available. Not available 10/01/2022 18:19:28 10/24/2022 10/24/2022 In lieu of the increasing PSA, inability to undergo MRI and the patient's past suspicious pathology I recommend moving forward with transperineal saturation biopsies of the peripheral zone of the prostate based on a mapping strategy. Risks, benefits and alternatives been discussed in detail with patient. Risks of bleeding, infection,injury to pelvic structures, and AUR with possible catheter need. Possible medical and anesthetic risks. Prep instructions given to patient in verbal and written form. Stop any and all anticoagulants. NPO after midnight the night before the procedure. 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 [email or web address] Not available 10/24/2022 16:26:39 11/27/2022 11/27/2022 Dated discussed with patient. Staging workup with chest x-ray, bone scan, CMP, CBC and prostate acid phosphatase will be in the works this week with follow-up to discuss along with treatment options are after. Not available 11/27/2022 17:38:50 12/10/2022 12/10/2022 PVR -34cc. UA negative. Patient is afebrile today and recent WBC was normal except there was some elevation of monocytes and eosinophils on the differential. The patient is also describing a productive cough with low-grade fever and I have encouraged him to see his PCP. As soon as final staging workup studies have been complete will have patient come in to discuss treatment options for his prostate cancer. He should avoid significant heavy lifting especially without a work belt to support his back and core. [email or web address] Not available 12/10/2022 08:09:00 12/31/2022 12/31/2022 Options discussed and include but are not limited to watch and wait approach, active surveillance, chemotherapy (not indicated), hormonal therapy as primary treatment, adjuvant treatment and neoadjuvant treatment, cryotherapy, HIFU,, radiation therapeutic modalities (for example radioactive seeds,IMRT/XRT and CyberKnife) and radical surgical options (with particular focus on laparoscopic robotic radical retropubic prostatectomy with or without nerve sparing). I have discussed the risks, potential benefits and outcomes of each of these forms of treatment and there possible utility or lack thereof. I have compared and contrasted these elements between the various forms of treatment. I have answered several questions for both patient and today. Patient is currently considering his options but is leaning toward radical surgical approach. If he chooses this approach we will be moving forward toward scheduling with a colleague who performs regularly this procedure. Not available 12/31/2022 18:10:05 Plan of Treatment Reminders Order Date Submit Date Provider Last Modified By Organization Details Last Modified Time Details Appointments None recorded. Lab urinalysis, dipstick 2022 023 [email or web address] 1 [facility], [address] [place] [address], [address], [place], [address], 3 08:18:55 CBC w/ diff 2022 023 DORI Not available 3 09:54:27 CMP, serum or plasma 2022 023 DORI Not available 3 09:16:08 prostatic acid phosphatase (Pap), serum 2022 023 [email or web address] Not available 3 16:59:43 Referral None recorded. Procedures None recorded. Surgeries None recorded. Imaging NM, bone scan, whole body 2022 023 [email or web address] Not available 3 11:02:44 XR, chest, 2 view 2022 023 DORI Not available 09:52:00 Medication Orders None recorded. Patient TargetsNo targets recorded. Patient InstructionsNo instructions recorded. Reason for Referral None Reported. Results Created Date Observation Date Name Description Value Unit Range Abnormal Flag Note LastModifiedBy Organization Detail LastModifiedTime 09/11/1909/10/2022 PROST ATE SPECI FIC AG (PSA) prostate specific Ag (PSA) 8.8 NG/mL 0-4.0 high Not Available [facility] ([facility]) [address], [place], [address], 09/10/2022 15:58:59 11/29/19 23 11/28/2022 CBC AUTO W DIFF WBC 7.0 K/uL 4.0-10 .5 Not Available [facility] ([facility]) [address] , [place], [address], 11/28/2022 09:00:35 11/29/19 23 11/28/2022 CBC AUTO W DIFF RBC 5.3 M/mm3 4.7-6. 1 Not Available [facility] ([facility]) [address] , [place], [address], 11/28/2022 09:00:35 11/29/19 23 11/28/2022 CBC AUTO W DIFF HGB 15.6 gm/dL 13.5-1 8.0 Not Available [facility] ([facility]) [address], [place], [address], 11/28/2022 09:00:35 11/29/19 23 11/28/2022 CBC AUTO W DIFF HCT 47.4 % 42.0-5 2.0 Not Available [facility] ([facility]) [address] , [place], [address], 11/28/2022 09:00:35 11/29/19 23 11/28/2022 CBC AUTO W DIFF MCV 89.6 fL 78-100 Not Available [facility] ([facility]) [address], [place], [address], 11/28/2022 09:00:35 11/29/19 23 11/28/2022 CBC AUTO W DIFF MCH 29.5 pg 27-31 Not Available [facility] ([facility]) [address], [place], [address], 11/28/2022 09:00:35 11/29/19 23 11/28/2022 CBC AUTO W DIFF MCHC 32.9 g/dL 32-36 Not Available [facility] ([facility]) [address], [place], [address], 11/28/2022 09:00:35 11/29/19 23 11/28/2022 CBC AUTO W DIFF RDW 14.2 % 11.5-1 4.0 high Not Available [facility] ([facility]) [address], [place], [address], 11/28/2022 09:00:35 11/29/19 23 11/28/2022 CBC AUTO W DIFF platelet count 182 K/uL 150-45 0 Not Available [facility] ([facility]) [address], [place], [address], 11/28/2022 09:00:35 11/29/19 23 11/28/2022 CBC AUTO W DIFF neutrophil% 57.6 % 43-65 Not Available [facility] ([facility]) [address], [place], [address], 11/28/2022 09:00:35 11/29/19 23 11/28/2022 CBC AUTO W DIFF lymphocyte% 25.0 % 20.5-4 5.5 Not Available [facility] ([facility]) [address], [place], [address], 11/28/2022 09:00:35 11/29/19 23 11/28/2022 CBC AUTO W DIFF monocyte% 13.0 % 5.5-11 .7 high Not Available [facility] ([facility]) [address], [place], [address], 11/28/2022 09:00:35 11/29/19 23 11/28/2022 CBC AUTO W DIFF eosinophil% 4.0 % 0.9-2. 9 high Not Available [facility] ([facility]) [address], [place], [address], 11/28/2022 09:00:35 11/29/19 23 11/28/2022 CBC AUTO W DIFF basophil% 0.4 % 0.2-1. 0 Not Available [facility] ([facility]) [address] [place], [address], 11/28/2022 09:00:35 11/29/19 23 11/28/2022 CBC AUTO W DIFF neutrophil# 4.0 K/uL 2.2-4. 8 Not Available [facility] ([facility]) [address] [place], [address], 11/28/2022 09:00:35 11/29/19 23 11/28/2022 CBC AUTO W DIFF lymphocyte# 1.8 cell/ mcL 1.3-2. 9 Not Available [facility] ([facility]) [address] [place], [address], 11/28/2022 09:00:35 11/29/19 23 11/28/2022 CBC AUTO W DIFF monocyte# 0.9 cell/ mcL 0.3-0. 8 high Not Available [facility] ([facility]) [address] [place], [address], 11/28/2022 09:00:35 11/29/19 23 11/28/2022 CBC AUTO W DIFF eosinophil# 0.3 cell/ mcL 0-0.2 high Not Available [facility] ([facility]) [address], [place], [address], 11/28/2022 09:00:35 11/29/19 23 11/28/2022 CBC AUTO W DIFF basophil# 0.0 cell/ mcL 0.0-1. 0 Not Available [facility] ([facility]) [address] , [place], [address], 11/28/2022 09:00:35 11/29/19 23 11/28/2022 CBC AUTO W DIFF manual differential NO Not Available [facility] ([facility]) [address], [place], [address], 11/28/2022 09:00:35 11/29/19 23 11/28/2022 COMP METAB OLIC PANEL sodium 138 mmol/ L 136-14 5 Not Available [facility] ([facility]) [address] , [place], [address], 11/28/2022 09:16:08 11/29/19 23 11/28/2022 COMP METAB OLIC PANEL potassium 3.7 mmol/ L 3.6-5. 0 Not Available [facility] ([facility]) [address] , [place], [address], 11/28/2022 09:16:08 11/29/19 23 11/28/2022 COMP METAB OLIC PANEL chloride 101 mmol/ L 98-107 Not Available [facility] ([facility]) [address], [place], [address], 11/28/2022 09:16:08 11/29/19 23 11/28/2022 COMP METAB OLIC PANEL carbon dioxide 31.1 mmol/ L 21.0-3 2.0 Not Available [facility] ([facility]) [address], [place], [address], 11/28/2022 09:16:08 11/29/19 23 11/28/2022 COMP METAB OLIC PANEL anion gap 9.6 Not Available [facility] ([facility]) [address], [place], [address], 11/28/2022 09:16:08 11/29/19 23 11/28/2022 COMP METAB OLIC PANEL glucose 125 mg/dL 70-120 high Not Available [facility] ([facility]) [address], [place], [address], 11/28/2022 09:16:08 11/29/19 23 11/28/2022 COMP METAB OLIC PANEL BUN 20 mg/dL 7-18 high Not Available [facility] ([facility]) [address] , [place], [address], 11/28/2022 09:16:08 11/29/19 23 11/28/2022 COMP METAB OLIC PANEL creatinine 1.3 mg/dL 0.6-1. 3 Not Available [facility] ([facility]) [address], [place], [address], 11/28/2022 09:16:08 11/29/19 23 11/28/2022 COMP METAB OLIC PANEL glomerular filtration rate 58 mlper min 60- low Not Available [facility] ([facility]) [address] , [place], [address], 11/28/2022 09:16:08 11/29/19 23 11/28/2022 COMP METAB OLIC PANEL total protein 7.4 g/dL 6.4-8. 2 Not Available [facility] ([facility]) [address], [place], [address], 11/28/2022 09:16:08 11/29/19 23 11/28/2022 COMP METAB OLIC PANEL albumin 3.7 g/dL 3.4-5. 0 Not Available [facility] ([facility]) [address], [place], [address], 11/28/2022 09:16:08 11/29/19 23 11/28/2022 COMP METAB OLIC PANEL globulin 3.7 Not Available [facility] ([facility]) [address], [place], [address], 11/28/2022 09:16:08 11/29/19 23 11/28/2022 COMP METAB OLIC PANEL alb/glob ratio 1.0 0.7-2 Not Available [facility] ([facility]) [address], [place], [address], 11/28/2022 09:16:08 11/29/19 23 11/28/2022 COMP METAB OLIC PANEL calcium 9.0 mg/dL 8.5-10 .5 Not Available [facility] ([facility]) [address], [place], [address], 11/28/2022 09:16:08 11/29/19 23 11/28/2022 COMP METAB OLIC PANEL bilirubin total 0.30 mg/dL 0.10-1 .00 Not Available [facility] ([facility]) [address], [place], [address], 11/28/2022 09:16:08 11/29/19 23 11/28/2022 COMP METAB OLIC PANEL AST (SGOT) 16 U/L 0-37 Not Available [facility] ([facility]) [address], [place], [address], 11/28/2022 09:16:08 11/29/19 23 11/28/2022 COMP METAB OLIC PANEL ALT (SGPT) 27 U/L 0-65 Not Available [facility] ([facility]) [address] , [place], [address], 11/28/2022 09:16:08 11/29/19 23 11/28/2022 COMP METAB OLIC PANEL alk phosphatase 103 U/L 46-116 Not Available [facility] ([facility]) [address], [place], [address], 11/28/2022 09:16:08 11/29/19 23 11/30/2022 PROST ATIC ACID PHOS, SERUM prostatic acid phos, serum 1.4 NG/mL 0.0-3. 5 Sieme ns Immul ite 2000 Immun ochem ilumi nomet annalee assay (ICMA ) . Value s obtai kelvin with diffe rent assay metho ds or kits canno t be used inter gutierrez eably . Resul ts canno t be inter prete d as absol ava evide nce of the prese nce or absen ce of keila boss . Perfo rmed at: [facility] [address] [facility] [place] [address] Lab Direc tor: Ginny vega MD, Phone : [phone] Not Available [facility] ([facility]) [address], [place], [address], 11/30/2022 17:11:37 12/11/19 23 12/10/2022 urina lysis , dipst ick Leukocytes (reference range) negati ve Not Available [facility] [address] [place] [address] [address], [address], 12/10/2022 07:06:37 12/11/19 23 12/10/2022 urina lysis , dipst ick Nitrite (reference range:) negati ve Not Available [address], [place], [address], 12/10/2022 07:06:37 12/11/19 23 12/10/2022 urina lysis , dipst ick Urobilinogen (reference range) 0.2 Not Available [facility] [address] [place] [address] [address], [place], [address], 12/10/2022 07:06:37 12/11/1912/10/2022 urina lysis , dipst ick Protein (reference range) negati ve Not Available [facility] [address] [place] [address] [address], [place], [address], 12/10/2022 07:06:37 12/11/19 23 12/10/2022 urina lysis , dipst ick pH (reference range 5-8.5) 5.0 Not Available [facility] [address] [place] [address] [address], [place], [address], 12/10/2022 07:06:37 12/11/19 23 12/10/2022 urina lysis , dipst ick Blood (reference range:) negati ve Not Available [address], [place], [address], 12/10/2022 07:06:37 12/11/19 23 12/10/2022 urina lysis , dipst ick Specific [place] (reference range) 1.020 Not Available [facility], [place], [address], 12/10/2022 07:06:37 12/11/19 23 12/10/2022 urina lysis , dipst ick Ketone (reference range) negati ve Not Available [facility] [address] [place] [address] [address], [place], [address], 12/10/2022 07:06:37 12/11/1912/10/2022 urina lysis , dipst ick Bilirubin (reference range) negati ve Not Available [address], [place], [address], 12/10/2022 07:06:37 12/11/19 23 12/10/2022 urina lysis , dipst ick Glucose (reference range) negati ve Not Available [facility] [address], [place], [address], 12/10/2022 07:06:37 12/11/19 23 12/10/2022 urina lysis , dipst ick Color (reference range: yellow-brown ) Yellow Not Available [facility] [address], [place], [address], 12/10/2022 07:06:37 12/19/19 23 12/18/2022 CBC AUTO W DIFF WBC 7.1 K/uL 4.0-10 .5 Not Available [facility] ([facility]) [address] [facility] [address], [place], [address], 12/18/2022 11:53:03 12/19/19 23 12/18/2022 CBC AUTO W DIFF RBC 5.3 M/mm3 4.7-6. 1 Not Available [facility] ([facility]) [address] [facility] [facility] [address], [place], [address], 12/18/2022 11:53:03 12/19/19 23 12/18/2022 CBC AUTO W DIFF HGB 16.2 gm/dL 13.5-1 8.0 Not Available [facility] ([facility]) [address] [facility] [facility] [address], [place], [address], 12/18/2022 11:53:03 12/19/19 23 12/18/2022 CBC AUTO W DIFF HCT 48.8 % 42.0-5 2.0 Not Available [facility] ([facility]) [address] [facility] [facility] [address], [place], [address], 12/18/2022 11:53:03 12/19/19 23 12/18/2022 CBC AUTO W DIFF MCV 92.2 fL 78-100 Not Available [facility] ([facility]) [address] [facility] [address], [place], [address], 12/18/2022 11:53:03 12/19/19 23 12/18/2022 CBC AUTO W DIFF MCH 30.6 pg 27-31 Not Available [facility] ([facility]) [address] , [place], [address], 12/18/2022 11:53:03 12/19/19 23 12/18/2022 CBC AUTO W DIFF MCHC 33.2 g/dL 32-36 Not Available [facility] ([facility]) [address] , [place], [address], 12/18/2022 11:53:03 12/19/19 23 12/18/2022 CBC AUTO W DIFF RDW 13.6 % 11.5-1 4.0 Not Available [facility] ([facility]) [address], [place], [address], 12/18/2022 11:53:03 12/19/19 23 12/18/2022 CBC AUTO W DIFF platelet count 181 K/uL 150-45 0 Not Available [facility] ([facility]) [address] [place], [address], 12/18/2022 11:53:03 12/19/19 23 12/18/2022 CBC AUTO W DIFF neutrophil% 61.6 % 43-65 Not Available [facility] ([facility]) [address] [place], [address], 12/18/2022 11:53:03 12/19/19 23 12/18/2022 CBC AUTO W DIFF lymphocyte% 23.7 % 20.5-4 5.5 Not Available [facility] ([facility]) [address] [place], [address], 12/18/2022 11:53:03 12/19/19 23 12/18/2022 CBC AUTO W DIFF monocyte% 9.0 % 5.5-11 .7 Not Available [facility] ([facility]) [address], [place], [address], 12/18/2022 11:53:03 12/19/19 23 12/18/2022 CBC AUTO W DIFF eosinophil% 4.2 % 0.9-2. 9 high Not Available [facility] ([facility]) [address], [place], [address], 12/18/2022 11:53:03 12/19/19 23 12/18/2022 CBC AUTO W DIFF basophil% 1.1 % 0.2-1. 0 high Not Available [facility] ([facility]) [address], [place], [address], 12/18/2022 11:53:03 12/19/19 23 12/18/2022 CBC AUTO W DIFF neutrophil# 4.4 K/uL 2.2-4. 8 Not Available [facility] ([facility]) [address], [place], [address], 12/18/2022 11:53:03 12/19/19 23 12/18/2022 CBC AUTO W DIFF lymphocyte# 1.7 cell/ mcL 1.3-2. 9 Not Available [facility] ([facility]) [address] [facility] [address], [place], [address], 12/18/2022 11:53:03 12/19/19 23 12/18/2022 CBC AUTO W DIFF monocyte# 0.6 cell/ mcL 0.3-0. 8 Not Available [facility] ([facility]) [address] [place], [address], 12/18/2022 11:53:03 12/19/19 23 12/18/2022 CBC AUTO W DIFF eosinophil# 0.3 cell/ mcL 0-0.2 high Not Available [facility] ([facility]) [address] [facility] [address], [place], [address], 12/18/2022 11:53:03 12/19/19 23 12/18/2022 CBC AUTO W DIFF basophil# 0.1 cell/ mcL 0.0-1. 0 Not Available [facility] ([facility]) [address] , [place], [address], 12/18/2022 11:53:03 12/19/19 23 12/18/2022 CBC AUTO W DIFF manual differential NO Not Available [facility] ([facility]) [address], [place], [address], 12/18/2022 11:53:03 12/19/19 23 12/18/2022 COMP METAB OLIC PANEL sodium 139 mmol/ L 136-14 5 Not Available [facility] ([facility]) [address], [place], [address], 12/18/2022 12:18:44 12/19/19 23 12/18/2022 COMP METAB OLIC PANEL potassium 4.3 mmol/ L 3.6-5. 0 Not Available [facility] ([facility]) [address] , [place], [address], 12/18/2022 12:18:44 12/19/19 23 12/18/2022 COMP METAB OLIC PANEL chloride 102 mmol/ L 98-107 Not Available [facility] ([facility]) [address] , [place], [address], 12/18/2022 12:18:44 12/19/19 23 12/18/2022 COMP METAB OLIC PANEL carbon dioxide 32.0 mmol/ L 21.0-3 2.0 Not Available [facility] ([facility]) [address], [place], [address], 12/18/2022 12:18:44 12/19/19 23 12/18/2022 COMP METAB OLIC PANEL anion gap 9.3 Not Available [facility] ([facility]) [address] , [place], [address], 12/18/2022 12:18:44 12/19/19 23 12/18/2022 COMP METAB OLIC PANEL glucose 113 mg/dL 70-120 Not Available [facility] ([facility]) [address] , [place], [address], 12/18/2022 12:18:44 12/19/19 23 12/18/2022 COMP METAB OLIC PANEL BUN 19 mg/dL 7-18 high Not Available [facility] ([facility]) [address] , [place], [address], 12/18/2022 12:18:44 12/19/19 23 12/18/2022 COMP METAB OLIC PANEL creatinine 1.2 mg/dL 0.6-1. 3 Not Available [facility] ([facility]) [address] , [place], [address], 12/18/2022 12:18:44 12/19/19 23 12/18/2022 COMP METAB OLIC PANEL glomerular filtration rate >60 mlper min 60- Not Available [facility] ([facility]) [address] , [place], [address], 12/18/2022 12:18:44 12/19/19 23 12/18/2022 COMP METAB OLIC PANEL total protein 7.5 g/dL 6.4-8. 2 Not Available [facility] ([facility]) [address] , [place], [address], 12/18/2022 12:18:44 12/19/19 23 12/18/2022 COMP METAB OLIC PANEL albumin 3.8 g/dL 3.4-5. 0 Not Available [facility] ([facility]) [address] , [place], [address], 12/18/2022 12:18:44 12/19/19 23 12/18/2022 COMP METAB OLIC PANEL globulin 3.7 Not Available [facility] ([facility]) [address], [place], [address], 12/18/2022 12:18:44 12/19/19 23 12/18/2022 COMP METAB OLIC PANEL alb/glob ratio 1.0 0.7-2 Not Available [facility] ([facility]) [address], [place], [address], 12/18/2022 12:18:44 12/19/19 23 12/18/2022 COMP METAB OLIC PANEL calcium 9.6 mg/dL 8.5-10 .5 Not Available [facility] ([facility]) [address] , [place], [address], 12/18/2022 12:18:44 12/19/19 23 12/18/2022 COMP METAB OLIC PANEL bilirubin total 0.40 mg/dL 0.10-1 .00 Not Available [facility] ([facility]) [address], [place], [address], 12/18/2022 12:18:44 12/19/19 23 12/18/2022 COMP METAB OLIC PANEL AST (SGOT) 15 U/L 0-37 Not Available [facility] ([facility]) [address] , [place], [address], 12/18/2022 12:18:44 12/19/19 23 12/18/2022 COMP METAB OLIC PANEL ALT (SGPT) 28 U/L 0-65 Not Available [facility] ([facility]) [address] , [place], [address], 12/18/2022 12:18:44 12/19/19 23 12/18/2022 COMP METAB OLIC PANEL alk phosphatase 99 U/L 46-116 Not Available [facility] [address] , [place], [address], 12/18/2022 12:18:44 12/19/19 23 12/18/2022 PROST ATE SPECI FIC AG (PSA) prostate specific Ag (PSA) 11.2 NG/mL 0-4.0 high Not Available [facility] ([facility]) [address] [facility] [address], [place], [address], 12/18/2022 12:18:45 10/09/19 23 10/08/2022 [facility] [address] [place] [address] Phone: Fax: Name: SAGE DUFFY Exam Date: 10/09/19 : 1954 Age 67 Gender : M Access ion: [id number] Physic mirna: PRADIP KINNEY [facility]ili [facility] Facili ty HSV: Outpat ient Exam: RENAL, BILATE RAL US RENAL ULTRAS OUND HISTOR Y: Renal cysts FINDIN GS: Kidney s show a normal echo patter n. Right kidney measur es 12.5 cm in length . Left kidney measur es 11.3 cm in length . Size is normal . Minima l increa se in right renal cyst today measur ing 6.5 previo usly 6.3 cm. No obstru ctive change s are presen t. Previo us small cystic lesion s in the left kidney are not redemo nstrat ed on today' s exam. CONCLU MORIAH: Minima l increa se in right renal cyst today measur ing 6.5 previo usly 6.3 cm. Dictat ed By: DAVID LOZADA Transc ribed By: David Lozada Transc ribed On: 10/09/19 4:56 PM Electr onical ly signed by: DAVID LOZADA 10/09/19 Thank you for referr ing SAGE DUFFY to [facility]. Legall y authen ticate d by POPE DAVID Jeffries 10-08 16:56: 49 CC'ed Logic: Orderi ng Provid er: GREGORIO DERAS Attend ing Provid er: GREGORIO DERAS Admitt ing Provid er: GREGORIO DERAS [email or web address] [facility] [address], [place], [address], 10/09/2022 09:25:38 11/29/19 23 11/28/2022 XR, chest , 2 view [facility] [address] [place] [address] Phone: Fax: Name: SAGE DUFFY Exam Date: 023 : 1954 Age 67 Gender : M Access ion: [id number] Physic mirna: PRADIP KINNEY Facili ty: [facility] Facili ty HSV: Outpat ient Exam: CHEST 2 VIEWS 2 view chest Histor y: Prosta te cancer Findin gs: Compar rony date 9. There is old granul omatou s diseas e. Heart size is normal . Thorac ic aorta is tortuo us and ectati c. There is mildly promin ent left epicar dial fat. There are no acute lung infilt rates or effusi ons. There are no noncal cified pulmon ye nodule s or masses . Impres moriah: Stable appear ance of the chest. No findin gs suspic ious for metast atic diseas e. Dictat ed By: DANA AGUILAR Transc ribed By: DANA AGUILAR Transc ribed On: 9:38 AM Electr onical ly signed by: DANA AGUILAR 023 [facility] Legall y authen ticate d by YONNY CORTEZ 11-28 09:38: 04 CC'ed Logic: Orderi ng Provid er: GREGORIO DERAS Attend ing Provid er: GREGORIO DERAS Referr ing Provid er: GREGORIO DERAS Admitt ing Provid er: GREGORIO DERAS [email or web address] [facility] [address], [place], [address], 12/05/2022 16:52:50 12/19/19 23 12/18/2022 XR, chest , 2 view [facility] [address] [place] [address] Phone: Fax: Name: SAGE DUFFY Exam Date: : 1954 Age 67 Gender : M Access ion: [id number] Physic mirna: GREGORIO Hand RAY Facili ty: [facility] Facili ty HSV: Outpat ient Exam: CHEST 2 VIEWS SINGLE VIEW CHEST HISTOR Y: Prosta te cancer COMPAR RONY: 023 FINDIN GS: The cardio medist inal silhou ette is normal . There is scatte red calcif ied residu a of old granul omatou s diseas e. There are chroni c change s within the lungs. No pneumo thorax . The osseou s struct ures are unrema rkable . IMPRES MORIAH: Chroni c findin gs withou t acute proces s. Images review ed, interp reted, and dictat ed by David Lozada D.O. Transc ribed by Sascha heard PA-C Dictat ed By: DAVID LOZADA Transc ribed By: David Lozada Transc ribed On: 10:10 AM Electr onical ly signed by: DAVID LOZADA Thank you [facility] Legall y authen ticate d by POPE DAVID Jeffries 12-18 10:10: 15 CC'ed Logic: Orderi ng Provid er: GREGORIO Hand RAY Attend ing Provid er: GREGORIO Hand RAY Referr ing Provid er: GREGORIO Hand RAY Admitt ing Provid er: GREGORIO DERAS [email or web address] [facility] [address] [place] [address], [place], [address], 12/24/2022 09:34:03 12/19/19 23 12/18/2022 whole body bone scan [facility] [address] [place] [address] Phone: Fax: Name: SAGE DUFFY Exam Date: : 1954 Age 67 Gender : M Access ion: [id number] Physic mirna: GREGORIO Hand, RAY Facili ty: [facility] Facili ty HSV: Outpat ient Exam: WHOLE BODY BONE SCAN Total body bone scan. HISTOR Y: New diagno sis of prosta te cancer . PROCED URE: The patien t was inject ed with 25.7 mCi of techne tium 99m MDP. Images of the skelet al system were obtain ed after 3 hours delaye hector FINDIN GS: Renal and soft tissue uptake are normal . Symmet annalee uptake is identi fied in the should ers bilate rally, likely degene rative . There is asymme tric radiot racer uptake within the right first metata rsal phalan geal joint, likely degene rative . Focal asymme tric uptake within the left cervic al spine is also likely degene rative . Consid er plain film correl ation. 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 Findin gs may be second ye to artifa ct. Марияe r, the patien t became claust rophob ic and obliqu e rib views were not obtain ed. IMPRES MORIAH: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
--- NOTE | 2024-09-23 00:02 | PC.NURSE ---
xray done at bedside. Skin pink warm and dry Resp full and easy Speech clear and appropriate. Radial pulses strong and equal Cap refill brisk
--- NOTE | 2024-09-23 00:12 | ED_ITS ---
Discharge Plan Disposition Patient Disposition: Home, Self-Care Prescriptions Prescriptions: No Action pioglitazone 15 mg tablet 15 mg PO DAILY rosuvastatin 40 mg tablet 40 mg PO HS albuterol sulfate 90 mcg/actuation HFA aerosol inhaler 4 inh inhalation Q3H PRN (Reason: shortness of breath or wheezing) Qty: 8.5 0RF Rx Instructions: until breathing returns to target peak flow/parameters doxycycline monohydrate 100 mg capsule 100 mg PO BID 7 Days Qty: 14 0RF prednisone 50 mg tablet 50 mg PO DAILY 5 Days Qty: 5 0RF metoprolol succinate 25 MG tablet extended release 24 hr 25 mg PO DAILY Qty: 30 0RF Referrals Follow up/Referrals: Harmony Lutz MD [Primary Care Provider] - See instructions Activity Restrictions/Add. Instructions Additional Instructions/Restrictions: Please follow-up with your primary care provider. Please return to the emergency department if you develop any new or worsening symptoms or become concerned for your health. Please take Tylenol and ibuprofen as needed for pain. Do not lift any significant weight with the right arm until symptoms are improving, at least a week or so. Clinical Impressions Clinical Impression: Elbow pain, right Print Language Print Language: Romanian Discharge ED Provider: Paul Hinton General Adult HPI General Chief complaint: PAIN Stated complaint: R elbow injury, swelling, can't straighten Time Seen by Provider: 09/22/24 23:55 Mode of Arrival: Ambulatory Source of Information: Patient Description of Symptoms (Recalled from ER Triage Doc. by RN): Pt states he lifted somethin heavy at work and now having pain in right forearm History of Present Illness HPI narrative: 69-year-old male without significant past medical history presents for right elbow/forearm pain. He reports that he was lifting something at work, approximately 50 pounds, when he felt something pop in his elbow and it has been hurting since. Initially was not bad but is becoming more sore. Pain is worse with supination and pronation. Related Data Home Medications ?Medication ?Instructions ?Recorded ?Confirmed pioglitazone 15 mg tablet 15 mg PO DAILY 06/07/23 06/07/23 rosuvastatin 40 mg tablet 40 mg PO HS 06/07/23 06/07/23 Previous Rx's ?Medication ?Instructions ?Recorded metoprolol succinate 25 mg 25 mg PO DAILY #30 tabs 08/16/21 tablet,extended release 24 hr albuterol sulfate 90 mcg/actuation 4 inh inhalation Q3H PRN shortness 06/07/23 aerosol inhaler of breath or wheezing #8.5 grams doxycycline monohydrate 100 mg 100 mg PO BID 7 days #14 caps 06/07/23 capsule prednisone 50 mg tablet 50 mg PO DAILY 5 days #5 tabs 06/07/23 Allergies Allergy/AdvReac Type Severity Reaction Status Date / Time No Known Allergies Allergy Unverified 05/26/17 11:34 [facility] Disclaimer: The information contained in this section may have been updated after the patient was seen, as this information can be updated by other users. Social History Smoking Status: Current every day smoker alcohol intake: never current occupational status: employed Travel in the last 8 weeks: None Have you lived/traveled outside US in past 30 days?: No Contact w/someone who lives/traveled outside US past 30 days?: No Exposure to someone with infectious disease in past 14 days?: No Do you have a fever (greater than 100.4 F or 38 C)?: No Have you tested positive for COVID-19: No Exposed to someone with COVID-19 in past 14 days?: No Do you have a sore throat?: No Do you have a cough?: No Do you have any weakness?: No Do you have any diarrhea?: No Are you experiencing any unusual bleeding?: No Do you have any muscle aches/pain?: No Do you have any abdominal pain?: No Are you experiencing loss of taste or smell?: No Other Medical History Have you received the Flu Vaccine for this season: Yes Have you received the Pneumonia Vaccine: Yes ROS Obtained: Yes All systems reviewed & no additional complaints except as documented Physical Exam General General appearance: alert and in no apparent distress Head Head exam: atraumatic and normocephalic Eye Eye exam: Present normal appearance, PERRL and EOMI ENT ENT exam: Present normal oropharynx and normal external ear exam Neck Neck exam: Present normal inspection and full ROM Chest Chest inspection: Present normal inspection and symmetric chest wall rise; Absent tenderness Respiratory Respiratory exam: Present normal lung sounds bilaterally; Absent respiratory distress Cardiovascular Cardiovascular exam: Present regular rate and normal rhythm Abdominal Exam Abdominal exam: Present soft; Absent distention, tenderness or guarding Extremities Exam Extremities exam: Present normal inspection and other (Tenderness to palpation over the muscles of the proximal forearm, no tenderness over the bony prominences. No pain with range of motion of the elbow. Soreness with pronation and supination of); Absent edema or joint swelling Back Exam Back exam: Present normal inspection; Absent tenderness Neurological Exam Neurological exam: Present alert and oriented X3; Absent motor sensory deficit Psychiatric Psychiatric exam: Present normal affect and normal mood Skin Skin exam: Present warm, dry and normal color Lymphatic Lymphatic Findings: no adenopathy Medical Decision Making Medical Records Medical records reviewed: Yes I reviewed the patient's medical records. Screening: Per USPSTF and CDC recommendations, given the prevalence of disease in our region, it is our hospital?s policy to screen for HIV and viral Hepatitis for all patients aged 18 and over and those with ongoing risk factors. Kaveh Inquiry Pt receiving controlled substance: No Kaveh was queried for this patient: No Vital Signs: 09/22/24 23:58 09/23/24 00:15 Temperature 98.4 F 98.4 F Temperature Source Oral Oral Pulse Rate 100 H Pulse Rate [Left Brachial] 103 H Respiratory Rate 20 20 Blood Pressure 150/80 H Blood Pressure [Left Arm] 142/86 H Blood Pressure Mean [Left Arm] 104 Blood Pressure Source Automatic Cuff Blood Pressure Source [Left Arm] Automatic Cuff Blood Pressure Position Sitting 02 Sat by Pulse Oximetry 100 Oxygen Delivery Method Room Air Room Air Lab Data Lab results reviewed: Yes I reviewed the patient's lab results. Orders (Tests/Meds): ORDERS Category Date Time Status Elbow XR right minimum 3 views [XR elbow RT min 3V] Exams 09/22/24 23:59 Taken Stat HIV Combo Routine Lab 09/23/24 00:01 Ordered Hepatitis C Ab Qual. W/ RFX Routine Lab 09/23/24 00:01 Ordered Medical Decision Narrative: 6-year-old male without significant past medical history presents for right elbow pain after lifting at work. History was obtained via interactive discussion with patient. On arrival, patient is [afebrile, hemodynamically stable, satting appropriately, alert, oriented x4, GCS 15], moving all extremities spontaneously. Full physical exam performed and significant for some tenderness over the muscles of the proximal forearm, no bony tenderness, no pain with range of motion of the elbow, pain with supination and pronation Differential includes but is not limited to muscle strain, fracture, dislocation. Patient declined any medication for symptomatic management and correction of underlying abnormalities. Workup initiated including radiograph of the right elbow on my interpretation, radiograph shows no evidence of bony injury or dislocation, no joint effusion. Interactive scheduled outpatient regarding presentation. Recommended he not lift anything for at least a week or so until symptoms start to improve. Recommend Tylenol and ibuprofen as needed for pain. Procedures Risk/Benefits of Procedure(s) Were Explained: Yes Critical Care Critical Care Time Critical Care Time: No
[2024-09-23 00:15] VITALS: BP 150/80; PULSE 100; RESP 20; TEMP 36.9; O2SAT 100
== END 2024-09-23 00:20 | disposition home or self-care (01) ==
PROVIDERS: Emergency Provider Emergency Medicine; PCP Family Medicine
DX: M25.521 Pain in right elbow (principal); X50.0XXA Overexertion from strenuous movement or load, initial encounter
CPT/HCPCS: 73080; 99283; 99284

== ENCOUNTER 2025-05-08 20:35 | Emergency (ER) | payer MEDICARE, SELFPAY ==
--- OUTSIDE RECORDS SUMMARY | 2025-05-08 20:47 | XMS_ITS | Clinical Summary ---
Author Organization [employer] ([place], [place], [place], [place], [place]) Address [address] [place] [address] Care Team Providers Care Certified Hearing Instrument Dispenser Name Role Phone Rex Lutz MD Primary Care Provider [phone] Allergies No known active allergies Medications aspirin 81 MG EC tablet Take 1 tablet (81 mg total) by mouth. Active pioglitazone (ACTOS) 15 MG tablet Take 1 tablet (15 mg total) by mouth every morning. 04/22/2023 Active rosuvastatin (CRESTOR) 40 MG tablet Take 1 tablet (40 mg total) by mouth daily. 02/16/2023 Active dorzolamide (TRUSOPT) 2 % ophthalmic solution 1 drop 2 (two) times daily. 04/07/2023 Active metoprolol succinate (TOPROL-XL) 25 MG 24 hr tablet Take 1 tablet (25 mg total) by mouth in the morning. Active nitrofurantoin, macrocrystal-mo nohydrate, (MACROBID) 100 MG capsule Take 1 capsule (100 mg total) by mouth 2 (two) times daily. 30 capsule 04/30/2023 Active Active Problems Problem Noted Date Diagnosed Date Prostate cancer 04/30/2023 Status post robotic assisted laparoscopic radical prostatectomy with bilateral obturator lymphadenectomy 04/30/2023 Preop examination 04/29/2023 Pre-diabetes 04/29/2023 Hypertension 04/29/2023 Hyperlipidemia 04/29/2023 Glaucoma Social History Tobacco Use Types Packs/Day Years Used Date Smoking Tobacco: Every Day Cigarettes Smokeless Tobacco: Never Tobacco Cessation:Ready to Q uit: Not Asked; Counseling Given: Not Answered Alcohol Use Standard Drinks/Week Comments Not Currently 0 (1 standard drink = 0.6 oz pur e alcohol) PRAPARE - Transportation Answer Date Re corded In the past 12 months, has l ack of transportation kept you from medical appointments or from getting medications? No 04/30/2023 Lack of Transportation (Non-Medical) Not on file 04/30/2023 Food Insecurity Answer Date Recorded Food run out past 12 months Not on file 06/03 Food did not last past 12 months Not on file 06/14/2023 Employment Answer Date Recorded Help finding and keeping a job Not on file 0 06/14/2023 Family and Community Support Answer Frandy e Recorded Help with Day to Day Activities Not on file 06/14/2023 Feeling Lonely or Isolated Not on file 06/14 Educational Attainment Answer Date Wai rded Speak language other than Paraguayan at home Not on file 06/14/2023 Want help with school or training Not on file 06/14/2023 Substance Use Answer Date Recorded Used prescription meds for non-medical reasons N ot on file 06/14/2023 Used illegal drugs past 12 months Not on file 06/14/2023 Sex and Gender Information Value Date Recorded Sex Assigned at Not on file Legal Sex Male 9:37 AM CDT Gender Identity Not on file Sexual Orientation Not on file Last Filed Vital Signs Vital Sign Reading Time Taken Comments Blood Pressure 114/69 05/01/2023 1:08 PM EST Pulse 67 05/01/2023 1:08 PM EST Temperature 37.1 C (98.8 F) 05/01/2023 1:08 PM EST Respiratory Rate 16 05/01/2023 9:41 AM EST Oxygen Saturation 97% 05/01/2023 1:08 PM EST Inhaled Oxygen Concentration - - Weight 93 kg (205 lb) 04/30/2023 4:48 PM EST Height 177.8 cm (5' 10 ) 04/30/2023 4:48 PM EST Body Mass Index 29.41 04/30/2023 4:48 PM EST Plan of Treatment Health Maintenance Due Date Last Done Comments CT Colonography 1954 Colonoscopy 1954 Colorectal Cancer Screening 1954 FOBT/FIT 1954 Fit-DNA (Cologuard) 1954 Sigmoidoscopy 1954 Depression Screening (12+) 1966 Hepatitis C Screening 1972 Shingles Vaccine (Zoster) (2 of 2) 05/03/20192018 Medicare Initial AWV [id number] 06/04/2023 Tobacco Cessation Counseling and Screening (12+) 04/30/2024 04/30/2023 Falls Risk Screening 06/03/2024 COVID-19 VACCINE (5 - 2024-2 6 season) 2025 03/17/2022, 01/07/2022, 03/27/2021, Additional history exists Influenza Vaccine (#1) 2025 2, 02/02/2021, 02/11/2020 DTAP/TDAP/TD VACCINES (2 - T d or Tdap) 08/07/2027 08/06/2017 Respiratory Syncytial Virus (RSV) Adult or (1 - 1-dose 75+ series) 2029 Pneumococcal 50+ years Completed , 05/31/2019, 05/21/2016 Medical Devices Implanted Type Area Foreign Student Adviser Device Identifier Shelf Expiration Date Model / Serial / Lot Biodfence G3 3x6cm [id number] - [id number] Implanted:Qty : 1 on 04/30/2023 by Anders Chino Jr., MD at [facility] IMPLANTS N/A: Pelvis [employer] 01/25/2024 [id number] / / [id number] Insurance E DREW JHA [id number] [facility] ACCESS HMO MAP Care Teams Certified Hearing Instrument Dispenser Relationship Specialty Start Date End Date Rex Lutz MD [address] [place] [address] PCP - General Family Medicine 04/29/23
--- OUTSIDE RECORDS SUMMARY | 2025-05-08 20:47 | XMS_ITS | Clinical Summary ---
[facility] Address [address] [place] [address] Care Team Providers Care Olive Grower Name Role Phone Tres Manjarrez MD Primary Care Provider Allergies No known active allergies Medications Fluticasone Furoate-Vilanter ol (BREO ELLIPTA IN) Inhale. Active atorvastatin (LIPITOR) 40 MG tablet Take 40 mg by mouth Daily. Active aspirin 81 MG EC tablet Take 81 mg by mouth Daily. Active Social History Tobacco Use Types Packs/Day Years Used Date Smoking Tobacco: Every Day Cigarettes Alcohol Use Standard Drinks/Week Comments No 0 (1 standard drink = 0.6 oz pur e alcohol) Abuse Screen Answer Date Recorded Unsafe at Home or Work/School Not on file Feels Threatened by Someone? Not on file 04/2023 Does Anyone Keep You from Co ntacting Others or Doint Things Outside the Home? Not on file 03/13/2023 Physical Sign of Abuse Present Not on file 1 Housing Stability Answer Date Recorded Current Living Arrangements Not on file 03/03 Potentially Unsafe Housing Conditions Not on rafi e 03/13/2023 Family and Community Support Answer Frandy e Recorded Help with Day-to-Day Activities Not on file 03/13/2023 Lonely or Isolated Not on file 03/13/2023 Employment Answer Date Recorded Do you want help finding or keeping work or a angus b? Not on file 03/13/2023 Disabilities Answer Date Recorded Concentrating, Remembering, or Making Decisions Difficulty Not on file 03/13/2023 Doing Errands Independently Difficulty Not on fi le 03/13/2023 Education Answer Date Recorded Help with school or training? Not on file Preferred Language Not on file 03/13/2023 Sex and Gender Information Value Date Recorded Sex Assigned at Not on file Legal Sex Male 3:15 PM EDT Gender Identity Not on file Sexual Orientation Not on file Last Filed Vital Signs Vital Sign Reading Time Taken Comments Blood Pressure 117/96 10/06/2016 6:32 PM EDT Pulse 75 10/06/2016 6:32 PM EDT Temperature 36.9 C (98.5 F) 10/06/2016 3:18 PM EDT Respiratory Rate 18 10/06/2016 6:32 PM EDT Oxygen Saturation 95% 10/06/2016 6:32 PM EDT Inhaled Oxygen Concentration - - Weight 80.3 kg (177 lb) 10/06/2016 3:22 PM EDT Height 180.3 cm (5' 11 ) 10/06/2016 3:22 PM EDT Body Mass Index 24.69 10/06/2016 3:22 PM EDT Plan of Treatment Health Maintenance Due Date Last Done Comments TDAP/TD VACCINES (1 - Tdap) 1973 COLOGUARD 1999 COLON CANCER SCREENING 5 YEAR SIGMOIDOSCOPY 1999 COLONOSCOPY [address] CANCER SCREENING 1999 CT COLONOGRAPHY 1999 FECAL OCCULT BLOOD TEST 1999 FIT Testing (1 year) 1999 Pneumococcal Vaccine 50+ (1 of 1 - PCV) 2004 ZOSTER VACCINE (1 of 2) 2004 ANNUAL PHYSICAL 10/06/2016 HEPATITIS C SCREENING 10/06/2016 AAA SCREEN ONCE 2019 INFLUENZA VACCINE 01/01/2025 COVID-19 Vaccine ( - season) 2025 Insurance [facility] PPO Care Teams Olive Grower Relationship Specialty Start Date End Date Tres Manjarrez MD [address] [facility] [address] [facility] [address] [place] [address] PCP - General Family Medicine 10/06/16
--- OUTSIDE RECORDS SUMMARY | 2025-05-08 20:47 | XMS_ITS | Data Portability ---
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 Plan of Treatment Reminders Order Date Submit Date Provider Last Modified By Organization Details Last Modified Time Details Appointments RECHECK 2024 09:00A M CHIRAG AUSTIN MD Not available Not available Not available Lab urinalysi s panel, auto 2023 024 [facility], [address], [address], [place], [address], 05/23/2024 10:37:59 PSA, serum or plasma 2023 024 [facility], [address], [place], [address], 05/23/2024 10:37:59 urinalysi s panel, auto 2023 024 [facility], [address], [place], [address], 11/20/2023 08:46:45 PSA, serum or plasma 2023 024 [facility], [address], [address], [place], [address], 09/15/2023 10:08:54 urinalysi s panel, auto 2023 024 [facility], [address], [address] [place] [address], [address], 09/03/2023 09:50:03 PSA, serum or plasma 2023 024 [facility], [address], [address] [place] [address], [address], 09/03/2023 09:50:04 Referral None recorded. Procedures None recorded. Surgeries None recorded. Imaging None recorded. Medication Orders None recorded. Patient TargetsNo targets recorded. Patient InstructionsNo instructions recorded. Reason for Referral None Reported. Results Created Date Observation Date Name Description Value Unit Range Abnormal Flag Note LastModifiedBy Organization Detail LastModifiedTime 08/19/1908/19/2023 PSA, serum or plasm a PSA <0.04 NG/mL 0.0 - 4.0 Not Available [facility] [address], [address], 08/19/2023 10:14:44 08/19/1908/19/2023 urina lysis panel , auto Unknown Analyte Clean Catch Not Available [facility] [address] [place] [address] [address] [place] [address], [address], 08/19/2023 09:52:46 08/19/1908/19/2023 urina lysis panel , auto Unknown Analyte Yellow Not Available [facility] [address] [place] [address], [address], 08/19/2023 09:52:46 08/19/19 24 08/19/2023 urina lysis panel , auto Unknown Analyte Clear Not Available [facility] [address], [place], [address], 08/19/2023 09:52:46 08/19/19 24 08/19/2023 urina lysis panel , auto Unknown Analyte 1.010 Not Available [facility] [address], [place], [address], 08/19/2023 09:52:46 08/19/19 24 08/19/2023 urina lysis panel , auto Unknown Analyte 1.003- 1.035 Not Available [facility] [address], [place], [address], 08/19/2023 09:52:46 08/19/19 24 08/19/2023 urina lysis panel , auto Unknown Analyte 5.0 Not Available [facility] [address], [place], [address], 08/19/2023 09:52:46 08/19/19 24 08/19/2023 urina lysis panel , auto Unknown Analyte 5.0-8. 0 Not Available [facility] [address], [place], [address], 08/19/2023 09:52:46 08/19/19 24 08/19/2023 urina lysis panel , auto Unknown Analyte Negati ve Not Available [facility] [address], [place], [address], 08/19/2023 09:52:46 08/19/19 24 08/19/2023 urina lysis panel , auto Unknown Analyte Negati ve Not Available [facility] [address], [place], [address], 08/19/2023 09:52:46 08/19/19 24 08/19/2023 urina lysis panel , auto Unknown Analyte Negati ve Not Available [facility] [address], [place], [address], 08/19/2023 09:52:46 08/19/19 24 08/19/2023 urina lysis panel , auto Unknown Analyte Negati ve Not Available [facility] [address] [place] [address] [address], [place], [address], 08/19/2023 09:52:46 08/19/19 24 08/19/2023 urina lysis panel , auto Unknown Analyte Negati ve Not Available [facility] [address], [place], [address], 08/19/2023 09:52:46 08/19/19 24 08/19/2023 urina lysis panel , auto Unknown Analyte Negati ve Not Available [facility] [address] [place], [place] [address], [place], [address], 08/19/2023 09:52:46 08/19/19 24 08/19/2023 urina lysis panel , auto Unknown Analyte Normal Not Available [facility] [address], [place], [address], 08/19/2023 09:52:46 08/19/19 24 08/19/2023 urina lysis panel , auto Unknown Analyte Normal Not Available [facility] [address] [place] [address] [address], [place], [address], 08/19/2023 09:52:46 08/19/19 24 08/19/2023 urina lysis panel , auto Unknown Analyte Negati ve Not Available [facility] [address], [place], [address], 08/19/2023 09:52:46 08/19/19 24 08/19/2023 urina lysis panel , auto Unknown Analyte Negati ve Not Available [facility] [address], [place], [address], 08/19/2023 09:52:46 08/19/19 24 08/19/2023 urina lysis panel , auto Unknown Analyte Normal Not Available [facility] [address], [place], [address], 08/19/2023 09:52:46 08/19/19 24 08/19/2023 urina lysis panel , auto Unknown Analyte Normal 1 mg/dl Not Available [facility] [address], [place], [address], 08/19/2023 09:52:46 08/19/19 24 08/19/2023 urina lysis panel , auto Unknown Analyte Negati ve Not Available [facility] [address], [place], [address], 08/19/2023 09:52:46 08/19/19 24 08/19/2023 urina lysis panel , auto Unknown Analyte Negati ve Not Available [facility] [address], [place], [address], 08/19/2023 09:52:46 08/19/19 24 08/19/2023 urina lysis panel , auto Unknown Analyte Negati ve Not Available [facility] [address], [place], [address], 08/19/2023 09:52:46 08/19/19 24 08/19/2023 urina lysis panel , auto Unknown Analyte Negati ve Not Available [facility] [address], [place], [address], 08/19/2023 09:52:46 09/12/19 24 09/12/2023 PSA, serum or plasm a PSA <0.04 NG/mL 0.0 - 4.0 Not Available [facility] [address], [place], [address], 09/12/2023 14:30:12 11/20/19 24 11/20/2023 urina lysis panel , auto Unknown Analyte Clean Catch Not Available [facility] [address], [address], 11/20/2023 08:43:07 11/20/1911/20/2023 urina lysis panel , auto Unknown Analyte Yellow Not Available [facility] [address], [address], 11/20/2023 08:43:07 11/20/19 24 11/20/2023 urina lysis panel , auto Unknown Analyte Clear Not Available [facility] [address], [place], [address], 11/20/2023 08:43:07 11/20/19 24 11/20/2023 urina lysis panel , auto Unknown Analyte 1.015 Not Available [facility] [address], [place], [address], 11/20/2023 08:43:07 11/20/1911/20/2023 urina lysis panel , auto Unknown Analyte 1.003- 1.035 Not Available [facility] [address], [address], 11/20/2023 08:43:07 11/20/19 24 11/20/2023 urina lysis panel , auto Unknown Analyte 5.0 Not Available [facility] [address], [place], [address], 11/20/2023 08:43:07 11/20/19 24 11/20/2023 urina lysis panel , auto Unknown Analyte 5.0-8. 0 Not Available [facility] [address], [place], [address], 11/20/2023 08:43:07 11/20/19 24 11/20/2023 urina lysis panel , auto Unknown Analyte Negati ve Not Available [facility] [address], [place], [address], 11/20/2023 08:43:07 06/19/11/20/2023 urina lysis panel , auto Unknown Analyte Negati ve Not Available [facility] [address], [place], [address], 11/20/2023 08:43:07 11/20/19 24 11/20/2023 urina lysis panel , auto Unknown Analyte Negati ve Not Available [facility] [address], [place], [address], 11/20/2023 08:43:07 11/20/1911/20/2023 urina lysis panel , auto Unknown Analyte Negati ve Not Available [facility] [address] [place] [address] [address], [place], [address], 11/20/2023 08:43:07 11/20/19 24 11/20/2023 urina lysis panel , auto Unknown Analyte Negati ve Not Available [facility] [address], [place], [address], 11/20/2023 08:43:07 11/20/19 24 11/20/2023 urina lysis panel , auto Unknown Analyte Negati ve Not Available [facility] [address], [place], [address], 11/20/2023 08:43:07 11/20/1911/20/2023 urina lysis panel , auto Unknown Analyte 50 mg/dl Not Available [facility] [address] [place] [address] [address], [place], [address], 11/20/2023 08:43:07 11/20/19 24 11/20/2023 urina lysis panel , auto Unknown Analyte Normal Not Available [facility] [address] [place] [address] [address], [place], [address], 11/20/2023 08:43:07 11/20/19 24 11/20/2023 urina lysis panel , auto Unknown Analyte Negati ve Not Available [facility] [address] [place] [address] [address], [place], [address], 11/20/2023 08:43:07 11/20/1911/20/2023 urina lysis panel , auto Unknown Analyte Negati ve Not Available [facility] [address], [place], [address], 11/20/2023 08:43:07 11/20/19 24 11/20/2023 urina lysis panel , auto Unknown Analyte Normal Not Available [facility] [address] [place] [address] [address], [place], [address], 11/20/2023 08:43:07 11/20/19 24 11/20/2023 urina lysis panel , auto Unknown Analyte Normal 1 mg/dl Not Available [facility] [address] [place] [address] [address], [place], [address], 11/20/2023 08:43:07 11/20/1911/20/2023 urina lysis panel , auto Unknown Analyte Negati ve Not Available [facility] [address], [place], [address], 11/20/2023 08:43:07 11/20/19 24 11/20/2023 urina lysis panel , auto Unknown Analyte Negati ve Not Available [facility] [address], [address], 11/20/2023 08:43:07 11/20/19 24 11/20/2023 urina lysis panel , auto Unknown Analyte Negati ve Not Available [facility] [address], [place], [address], 11/20/2023 08:43:07 11/20/19 24 11/20/2023 urina lysis panel , auto Unknown Analyte Negati ve Not Available [facility] [address], [address], 11/20/2023 08:43:07 05/21/20 24 05/21/2024 PSA, serum or plasm a PSA <0.04 NG/mL 0.0 - 4.0 Not Available [facility] [address], [place], [address], 05/21/2024 09:16:03 05/21/20 24 05/21/2024 urina lysis panel , auto Unknown Analyte Clean Catch Not Available [facility] [address], [place], [address], 05/21/2024 08:51:48 05/21/2005/21/2024 urina lysis panel , auto Unknown Analyte Yellow Not Available [facility] [address], [address], 05/21/2024 08:51:48 05/21/20 24 05/21/2024 urina lysis panel , auto Unknown Analyte Clear Not Available [facility] [address], [place], [address], 05/21/2024 08:51:48 05/21/20 24 05/21/2024 urina lysis panel , auto Unknown Analyte 1.015 Not Available [facility] [address], [place], [address], 05/21/2024 08:51:48 05/21/20 24 05/21/2024 urina lysis panel , auto Unknown Analyte 1.003- 1.035 Not Available [facility] [address], [place], [address], 05/21/2024 08:51:48 05/21/20 24 05/21/2024 urina lysis panel , auto Unknown Analyte 6.0 Not Available [facility] [address], [place], [address], 05/21/2024 08:51:48 05/21/20 24 05/21/2024 urina lysis panel , auto Unknown Analyte 5.0-8. 0 Not Available [facility] [address], [place], [address], 05/21/2024 08:51:48 05/21/20 24 05/21/2024 urina lysis panel , auto Unknown Analyte Negati ve Not Available [facility] [address], [place], [address], 05/21/2024 08:51:48 05/21/20 24 05/21/2024 urina lysis panel , auto Unknown Analyte Negati ve Not Available [facility] [address], [place], [address], 05/21/2024 08:51:48 05/21/20 24 05/21/2024 urina lysis panel , auto Unknown Analyte Negati ve Not Available [facility] [address] [place] [address] [address], [place], [address], 05/21/2024 08:51:48 05/21/20 24 05/21/2024 urina lysis panel , auto Unknown Analyte Negati ve Not Available [facility] [address], [place], [address], 05/21/2024 08:51:48 05/21/20 24 05/21/2024 urina lysis panel , auto Unknown Analyte Negati ve Not Available [facility] [address] [place] [address] [address], [place], [address], 05/21/2024 08:51:48 05/21/20 24 05/21/2024 urina lysis panel , auto Unknown Analyte Negati ve Not Available [facility] [address], [place], [address], 05/21/2024 08:51:48 05/21/20 24 05/21/2024 urina lysis panel , auto Unknown Analyte Normal Not Available [facility] [address] [place] [address] [address], [place], [address], 05/21/2024 08:51:48 05/21/20 24 05/21/2024 urina lysis panel , auto Unknown Analyte Normal Not Available [facility] [address], [place], [address], 05/21/2024 08:51:48 05/21/20 24 05/21/2024 urina lysis panel , auto Unknown Analyte Negati ve Not Available [facility] [address], [place], [address], 05/21/2024 08:51:48 05/21/20 24 05/21/2024 urina lysis panel , auto Unknown Analyte Negati ve Not Available [facility] [address], [place], [address], 05/21/2024 08:51:48 05/21/20 24 05/21/2024 urina lysis panel , auto Unknown Analyte Normal Not Available [facility] [address], [place], [address], 05/21/2024 08:51:48 05/21/20 24 05/21/2024 urina lysis panel , auto Unknown Analyte Normal 1 mg/dl Not Available [facility] [address], [place], [address], 05/21/2024 08:51:48 05/21/20 24 05/21/2024 urina lysis panel , auto Unknown Analyte Negati ve Not Available [facility] [address] [place] [address] [address], [place], [address], 05/21/2024 08:51:48 05/21/20 24 05/21/2024 urina lysis panel , auto Unknown Analyte Negati ve Not Available [facility] [address], [place], [address], 05/21/2024 08:51:48 05/21/20 24 05/21/2024 urina lysis panel , auto Unknown Analyte Negati ve Not Available [facility] [address] [place] [address] [address], [place], [address], 05/21/2024 08:51:48 05/21/20 24 05/21/2024 urina lysis panel , auto Unknown Analyte Negati ve Not Available [facility] [address] [place] [address] [address], [place], [address], 05/21/2024 08:51:48 04/29/20 23 04/29/2023 elect brenda fishergr am inter preta tion* No observ ation record ed. [email or web address] Not Available 2022 13:34:22 05/13/20 23 05/13/2023 XR, cysto gram [facility] [address] [place] [address] Willis gagnon Name: SAGE gagnon : 1954 Willis gagnon 2 Orderi ng Provid er: CHIRAG ENGLISH EXAM DATE: 2022 EXAM: RF CYSTOG [facility] AL INFORM ATION: Post prosta tectom y IMAGES PROVID ED: Under fluoro scopic contro l, Cystog rafin 18% 150 mL (150 mL from a 300 mL bottle of [facility] [address]- 1410-3 0; 150 mL was wasted and discar ded.) was instil led into the bladde r throug h the indwel ling Flores' s cathet er until comple tely full. Full bladde r images were obtain ed.The bladde r was then allowe d to empty and more images were obtain ed of the empty bladde r. COMPAR RONY: None. FINDIN GS: ENVIRONMENTAL SCIENCE INSTRUCTOR: No abnorm al calcif icatio ns [...] Michael Augustine MD on 2022 11:09 AM [facility] [address] [place], [address], 05/14/2023 16:26:36 Result Notes None recorded. Problems Name Problem SNOMED Code Status Onset Date Resolution Date Notes Provider Name and Address Organization Details Recorded Time Malignant neoplasm of prostate 149448818 Active 023 CHIRAG AUSTIN JR, MD [address] [place], [address], [facility] 20:25:29 Problem Notes None recorded. Procedures Surgical History Date Name Laterality Status Provider Name and Address Organization Details Recorded Time 04/30/20 23 PROSTATECTOMY WITH BILATERAL PELVIC LYMPH NODE DISSECTION, ROBOT ASSISTED LAPAROSCOPIC (SURG) completed Huan Slater [facility] 05/02/2023 13:06:31 procedure on gallbladder completed Yonnoemy Pollack [facility] 03/21/2023 09:12:52 Imaging Results None recorded. Procedure Notes None recorded. Medical Equipment None [...] Updated DateTime 08/19/2023 177.8 cm 29 kg/m2 05751.66 g Chen Seferino [facility] 08/19/2023 09:33:50 Date Recorded Body height Body mass index (BMI) Body weight Provider Name and Address Organization Details Last Updated DateTime 11/20/2023 177.8 cm 27.3 kg/m2 96103.55 g Chen Gentile [facility] 11/20/2023 08:33:07 Date Recorded Body height Body mass index (BMI) Body weight Provider Name and Address Organization Details Last Updated DateTime 05/20/2023 177.8 cm 28.7 kg/m2 54455.47 g Zurdo Pollack [facility] 05/20/2023 10:15:59 Date Recorded Body height Body mass index (BMI) Body weight Provider Name and Address Organization Details Last Updated DateTime 05/21/2024 180.34 cm 28.5 kg/m2 00435.84 g Jenifer Sai [facility] 05/21/2024 13:49:32 Social History Question Answer Notes LastModified by Viadeo Details LastModified Time Tobacco Smoking Status Former Smoker Zurdo Broderickshaw [facility] 03/21/2023 09:12:38 What Is Your Relationship Status? [email or web address] Information not available 03/21/2023 Has Tobacco Cessation Counseling Been Provided? No [email or web address] Information not available 03/21/2023 Sex: Unknown Functional Status Question Answer Note LastModified by Viadeo Details LastModified Time Do you use any illicit or recreational drugs? No [email or web address] Information not available 03/21/2023 Do you or have you ever used any other forms of tobacco or nicotine? No [email or web address] Information not available 03/21/2023 What is your level of alcohol consumption? Occasional [email or web address] Information not available 03/21/2023 Are you currently employed? Yes [email or web address] Information not available 03/21/2023 Mental Status None recorded. Family History Relationship Description Onset Age of this Age Resolved Age Notes LastModified by Organization Details LastModified Time Mother Diabetes mellitus [email or web address] Not available 03/03 09:11:52 Unspecified Relation Family history of malignant neoplasm Not available 03/03 09:12:12 Medical History Condition Response Glaucoma Y Arthritis Y High Cholesterol Y Past Encounters Encounter ID Performer Location Encounter Start Date Encounter Closed Date Diagnosis/Indication Diagnosis SNOMED-CT Code Diagnosis ICD10 Code Diagnosis IMO Codes Diagnosis Note [id number] CHIRAG AUSTIN JR, MD [facility] [address] [place] [address] 03/21/2023 08:33:42 03/21/2023 08:59:14 Malignant neoplasm of prostate [id number] C61 [id number] CHIRAG AUSTIN JR, MD [facility] [address] [place] [address] 05/13/2023 09:27:34 05/13/2023 10:12:34 Malignant neoplasm of prostate [id number] C61 [id number] CHIRAG AUSTIN JR, MD [facility] [address] [place] [address] 05/20/2023 10:01:21 05/20/2023 10:25:38 Malignant neoplasm of prostate [id number] C61 [id number] CHIRAG AUSTIN JR, MD [facility] [address] [place] [address] 08/19/2023 09:21:46 08/19/2023 09:45:13 Malignant neoplasm of prostate [id number] C61 [id number] CHIRAG AUSTIN JR, MD [facility] [address] [place] [address] 09/12/2023 13:53:42 09/12/2023 14:03:01 Malignant neoplasm of prostate [id number] C61 [id number] CHIRAG AUSTIN JR, MD [facility] [address] [place] [address] 11/20/2023 08:17:22 11/20/2023 08:47:41 Malignant neoplasm of prostate [id number] C61 [id number] CHIRAG AUSTIN JR, MD [facility] [address] [place] [address] 05/21/2024 08:03:03 05/29/2024 14:00:57 Malignant neoplasm of prostate [id number] C61 Health Concerns Section Related Observation LastModified by Organization Detai ls LastModified Time None Recorded Concern Status LastModified by Organization Details LastModified Time None Recorded Advance Directives Directive None Recorded Payers Insurance Date Sequence Insurance Name Policy Number Policy Bennett Covered Member ID Bennett Member ID Guarantor Name 05/29/2024 1 [place]MEDICARE REPLACEMENT HMO) [id number] [facility] [id number] Loc Notes Date Note Type Note Provider Name and Address Organization Details Recorded Time 05/20/2023 text/html F/u ACP. RALRP 04/30/23. Path: ACP 3+4=7, T2c, negative margins, negative lymph nodes. Trial of void today CHIRAG AUSTIN JR, MD [address] [place] [address], [phone] 06/01/2023 11:38:46 08/19/2023 text/html F/u ACP. RALRP 04/30/23. Path: ACP 3+4=7, T2c, negative margins, negative lymph nodes. Urinary incontinence is improving greatly CHIRAG AUSTIN JR, MD [address] [place] [address], [phone], [facility] 09/03/2023 09:50:08 11/20/2023 text/html F/u ACP. RALRP 04/30/23. Path: ACP 3+4=7, T2c, negative margins, negative lymph nodes. Urinary incontinence is improving greatly CHIRAG AUSTIN JR, MD [address] [place] [address], [phone], [facility] 11/20/2023 08:46:47 05/21/2024 text/html F/u ACP. RALRP 04/30/23. Path: ACP 3+4=7, T2c, negative margins, negative lymph nodes. Urinary control is good. CHIRAG AUSTIN JR, MD [address] [place] [address], [phone], [facility] 05/23/2024 10:38:01
--- OUTSIDE RECORDS SUMMARY | 2025-05-08 20:47 | XMS_ITS | Referral Summary ---
Author Organization [employer] ([place], [place], [place], [place], [place]) Address [address] [place] [address] Care Team Providers Care Lollypop Machine Operator Name Role Phone Rex Lutz MD Primary Care Provider [phone] Allergies No known active allergies Medications aspirin [...] Date Wai rded Speak language other than Nigerian at home Not on file 06/14/2023 Want [...] 04/30/2023 4:48 PM EST Plan of Treatment Not on file Medical Devices Implanted Type Area Brickmason Helper Device Identifier Shelf Expiration Date Model / Serial / Lot Biodfence G3 3x6cm [id number] - [id number] Implanted:Qty : 1 on 04/30/2023 by Anders Chino Jr., MD at [facility] IMPLANTS N/A: Pelvis [employer] 01/25/2024 [id number] / / [id number] Insurance E [place]RE[place]HA [id number] [facility] ACCESS O MAP Care Teams Lollypop Machine Operator Relationship Specialty Start Date End Date Rex Lutz MD [address] [place] [phone] PCP - General Family Medicine 04/29/23
[2025-05-08 20:48] VITALS: BP 129/78; PULSE 74; RESP 18; TEMP 37.1; O2SAT 98; BMI 27.3
--- NOTE | 2025-05-08 20:50 | HMH.EDGENADL ---
Discharge Plan Disposition Patient Disposition: Home, Self-Care Prescriptions Prescriptions: New levofloxacin 750 mg tablet 750 mg PO Q12H 7 Days Qty: 14 0RF No Action pioglitazone 15 mg tablet 15 mg PO DAILY rosuvastatin 40 mg tablet 40 mg PO HS albuterol sulfate 90 mcg/actuation HFA aerosol inhaler 4 inh inhalation Q3H PRN (Reason: shortness of breath or wheezing) Qty: 8.5 0RF Rx Instructions: until breathing returns to target peak flow/parameters doxycycline monohydrate 100 mg capsule 100 mg PO BID 7 Days Qty: 14 0RF prednisone 50 mg tablet 50 mg PO DAILY 5 Days Qty: 5 0RF metoprolol succinate 25 MG tablet extended release 24 hr 25 mg PO DAILY Qty: 30 0RF Referrals Follow up/Referrals: Harmony Lutz MD [Primary Care Provider, Medical] - See instructions Activity Restrictions/Add. Instructions Additional Instructions/Restrictions: Your CT scan showed possible infection on the outside of the left ear. I encourage you to take the antibiotics as prescribed and follow-up with a calf skinner as discussed. If you develop any new or worsening symptoms, such as fever, worsening pain, pain or swelling behind the ear, or if you develop any new or worsening symptoms, return to the emergency department for evaluation. Clinical Impressions Clinical Impression: Drainage from ear, left Print Language Print Language: Venezuelan Discharge ED Provider: Ney Baptiste Adult HPI <DAVID Montano - Last Filed: 05/08/25 22:09> General Chief complaint: Ear Stated complaint: infection in ear with drainage post op Time Seen by Provider: 05/08/25 20:39 Mode of Arrival: Ambulatory Source of Information: Patient and Medical Record Limitations: No Limitations History of Present Illness HPI narrative: 69-year-old male presents to the emergency department with left otorrhea, for the last 2 weeks, patient states that he is status post what sounds like skin precancerous versus cancerous lesion removal around the pinna/outer ear,/external auditory canal, he cannot tell me exactly what skin lesion, he states that he had this performed at skin [facility] in [facility] . Patient denies any overt otalgia, no mastoid pain, no pain with movement of the ear, he denies any real purulent drainage, states it is a little bit of liquid , and that is foul-smelling . Denies any fever chills chest pain shortness of breath headache nausea vomiting constipation diarrhea no urinary symptomatology, patient is a former smoker denies any alcohol or drug use, other past medical history is consistent with hyperlipidemia, hypertension, COPD. Initial triage vitals are grossly unremarkable. Please note that above description of symptoms, in this electronic medical record under categorization of recalled from ER triage doctor by RN are reflective of an initial nursing assessment, however, is not reflective of my full history and physical exam that was personally taken and clarified. Consequentially, this preceding description of symptoms, which may include the patient's categorized chief complaint in the EMR, do not reflect my personal clinical impression, and the ultimate description of history of present illness and patient stated complaints should be deferred to this section of the note. Unless stated otherwise or congruent with this section of the note, additional signs, symptoms, or incongruence should be interpreted as inaccurate with my clinical impression. Onset (ago): week(s) Related Data Home Medications ?Medication ?Instructions ?Recorded ?Confirmed pioglitazone 15 mg tablet 15 mg PO DAILY 06/07/23 06/07/23 rosuvastatin 40 mg tablet 40 mg PO HS 06/07/23 06/07/23 Previous Rx's ?Medication ?Instructions ?Recorded metoprolol succinate 25 mg 25 mg PO DAILY #30 tabs 08/16/21 tablet,extended release 24 hr albuterol sulfate 90 mcg/actuation 4 inh inhalation Q3H PRN shortness 06/07/23 aerosol inhaler of breath or wheezing #8.5 grams doxycycline monohydrate 100 mg 100 mg PO BID 7 days #14 caps 06/07/23 capsule prednisone 50 mg tablet 50 mg PO DAILY 5 days #5 tabs 06/07/23 levofloxacin 750 mg tablet 750 mg PO Q12H 7 days #14 tabs 05/08/25 Allergies Allergy/AdvReac Type Severity Reaction Status Date / Time No Known Allergies Allergy Unverified 05/26/17 11:34 [facility] <DAVID Montano - Last Filed: 05/08/25 22:09> [facility] Disclaimer: The information contained in this section may have been updated after the patient was seen, as this information can be updated by other users. Social History Smoking Status: Never smoker alcohol intake: never current occupational status: employed Travel in the last 8 weeks?: None Have you lived/traveled outside US in past 30 days?: No Contact w/someone who lives/traveled outside US past 30 days?: No Exposure to someone with infectious disease in past 14 days?: No Do you have a fever (greater than 100.4 F or 38 C)?: No Have you tested positive for COVID-19?: No Exposed to someone with COVID-19 in past 14 days?: No Do you have a sore throat?: No Do you have a cough?: No Do you have any weakness?: No Do you have any diarrhea?: No Are you experiencing any unusual bleeding?: No Do you have any muscle aches/pain?: No Do you have any abdominal pain?: No Are you experiencing loss of taste or smell?: No Other Medical History Have you received the Flu Vaccine for this season: Yes Have you received the Pneumonia Vaccine: Yes <DAVID Montaon - Last Filed: 05/08/25 22:09> ROS Obtained: Yes All systems reviewed & no additional complaints except as documented Physical Exam <DAVID Montano - Last Filed: 05/08/25 22:09> General General appearance: alert and in no apparent distress Head Head exam: atraumatic and normocephalic Eye Eye exam: Present PERRL and EOMI ENT ENT exam: Present mucous membranes moist, TM's normal bilaterally, normal external ear exam and other (Normal external auditory canal, no pain with movement of the tragus pinna or helix, no obvious draining lesion, no erythema, no external auditory canal debris, some cerumen that is not impacted, white reflex elicited, no erythema tympanic membrane bulging. No pain palpation to the mastoid bone) Neck Neck exam: Present normal inspection Chest Chest inspection: Present normal inspection and symmetric chest wall rise Respiratory Respiratory exam: Present normal lung sounds bilaterally; Absent respiratory distress Cardiovascular Cardiovascular exam: Present regular rate and normal rhythm Abdominal Exam Abdominal exam: Present soft; Absent tenderness, guarding, rebound or rigidity Extremities Exam Extremities exam: Present normal inspection Neurological Exam Neurological exam: Present alert and oriented X3 Psychiatric Psychiatric exam: Present normal affect Skin Skin exam: Present warm and dry Medical Decision Making <DAVID Montano - Last Filed: 05/08/25 22:09> Medical Records Medical records reviewed: Yes I reviewed the patient's medical records. Screening: Per USPSTF and CDC recommendations, given the prevalence of disease in our region, it is our hospital?s policy to screen for HIV and viral Hepatitis for all patients aged 18 and over and those with ongoing risk factors. Kaveh Inquiry Pt receiving controlled substance: No Kaveh was queried for this patient: No Vital Signs: 05/08/25 20:48 05/08/25 20:52 Temperature 98.8 F 98.7 F Temperature Source Oral Oral Pulse Rate 71 Pulse Rate [Right] 74 Respiratory Rate 18 18 Blood Pressure 129/78 Blood Pressure [Right Arm] 129/78 Blood Pressure Mean [Right Arm] 95 02 Sat by Pulse Oximetry 98 98 Oxygen Delivery Method Room Air Room Air Lab Data Lab results reviewed: Yes I reviewed the patient's lab results. Lab Results 05/08/25 21:22: WBC 7.2, RBC 4.61, Hgb 14.4, Hct 42.4, MCV 92.0, MCH 31.2, MCHC 34.0, RDW 13.3, Plt Count 166, MPV 10.6 H, Neut % (Auto) 59.7, Lymph % (Auto) 25.7, [place] % (Auto) 9.4 H, Eos % (Auto) 4.2, Baso % (Auto) 0.7, Neut # (Auto) 4.3, Lymph # (Auto) 1.8, [place] # (Auto) 0.7, Eos # (Auto) 0.3, Baso # (Auto) 0.1, Sodium 133 L, Potassium 3.9, Chloride 100, Carbon Dioxide 29, Anion Gap 7.9, BUN 19, Creatinine 1.10, Estimated Creat Clear 72, Estimated GFR 66, Est GFR ( Amer) 80, Glucose 100, Lactate 0.8, Calcium 9.8, Total Bilirubin 0.4, AST 26, ALT 25, Alkaline Phosphatase 82, Total Protein 7.2, Albumin 4.3, Globulin 2.9, Albumin/Globulin Ratio 1.5 05/08/25 21:22 05/08/25 21:22 Orders (Tests/Meds): ED MEDICATIONS Discontinued Medications Generic Name Dose Route Start Last Admin Trade Name Freq PRN Reason Stop Dose Admin Iopamidol 75 ml 05/08/25 22:11 05/08/25 22:12 Iopamidol-370 (76%);100ml Bottle IV 05/08/25 22:12 75 ml ONCE ONE Administration Levofloxacin 750 mg 05/08/25 22:45 Levofloxacin 750 Mg Tablet PO 05/08/25 22:46 ONCE ONE Sodium Chloride 10 ml 05/08/25 22:11 05/08/25 22:12 Sodium Chloride 0.9% 10ml Syr (Rad Only) IV 05/08/25 22:12 10 ml ONCE ONE Administration ORDERS Category Date Time Status CT sella/ IAC w con Stat Cat Scan 05/08/25 21:06 Completed Complete Blood Count Auto Diff Stat Lab 05/08/25 21:22 Completed Comprehensive Metabolic Panel Stat Lab 05/08/25 21:22 Completed Lactic Acid Stat Lab 05/08/25 21:22 Completed Medical Decision Narrative: 69-year-old male presents the emergency department with external ear drainage, for 2 weeks, differential diagnose include but not limited to mastoiditis, otitis externa, otitis media, malignancy, among others. I had a long discussion with the patient at the bedside, patient would like to obtain laboratory studies rule out infection, although patient's external and internal otoscope exam and ear exam are grossly unremarkable, shared decision making was utilized thusw will obtain basic laboratory studies, lactic acid level, CT temporal bones/IAC with contrast. CBC is unremarkable CMP is grossly unremarkable, the exception of the hyponatremia 133, no lactic acidosis. I discussed this patient's case in depth with the attending physician , at shift change he will be assuming the main of the patient's care/workup, disposition is pending CT radiology report <Ney Baptiste MD - Last Filed: 05/08/25 22:56> Vital Signs: 05/08/25 20:48 05/08/25 20:52 Temperature 98.8 F 98.7 F Temperature Source Oral Oral Pulse Rate 71 Pulse Rate [Right] 74 Respiratory Rate 18 18 Blood Pressure 129/78 Blood Pressure [Right Arm] 129/78 Blood Pressure Mean [Right Arm] 95 02 Sat by Pulse Oximetry 98 98 Oxygen Delivery Method Room Air Room Air Lab Data Lab Results 05/08/25 21:22: WBC 7.2, RBC 4.61, Hgb 14.4, Hct 42.4, MCV 92.0, MCH 31.2, MCHC 34.0, RDW 13.3, Plt Count 166, MPV 10.6 H, Neut % (Auto) 59.7, Lymph % (Auto) 25.7, [place] % (Auto) 9.4 H, Eos % (Auto) 4.2, Baso % (Auto) 0.7, Neut # (Auto) 4.3, Lymph # (Auto) 1.8, [place] # (Auto) 0.7, Eos # (Auto) 0.3, Baso # (Auto) 0.1, Sodium 133 L, Potassium 3.9, Chloride 100, Carbon Dioxide 29, Anion Gap 7.9, BUN 19, Creatinine 1.10, Estimated Creat Clear 72, Estimated GFR 66, Est GFR ( Amer) 80, Glucose 100, Lactate 0.8, Calcium 9.8, Total Bilirubin 0.4, AST 26, ALT 25, Alkaline Phosphatase 82, Total Protein 7.2, Albumin 4.3, Globulin 2.9, Albumin/Globulin Ratio 1.5 Orders (Tests/Meds): ED MEDICATIONS Discontinued Medications Generic Name Dose Route Start Last Admin Trade Name Freq PRN Reason Stop Dose Admin Iopamidol 75 ml 05/08/25 22:11 05/08/25 22:12 Iopamidol-370 (76%);100ml Bottle IV 05/08/25 22:12 75 ml ONCE ONE Administration Levofloxacin 750 mg 05/08/25 22:45 Levofloxacin 750 Mg Tablet PO 05/08/25 22:46 ONCE ONE Sodium Chloride 10 ml 05/08/25 22:11 05/08/25 22:12 Sodium Chloride 0.9% 10ml Syr (Rad Only) IV 05/08/25 22:12 10 ml ONCE ONE Administration ORDERS Category Date Time Status CT sella/ IAC w con Stat Cat Scan 05/08/25 21:06 Completed Complete Blood Count Auto Diff Stat Lab 05/08/25 21:22 Completed Comprehensive Metabolic Panel Stat Lab 05/08/25 21:22 Completed Lactic Acid Stat Lab 05/08/25 21:22 Completed Medical Decision Narrative: 69-year-old male presents the emergency department with external ear drainage, for 2 weeks, differential diagnose include but not limited to mastoiditis, otitis externa, otitis media, malignancy, among others. I had a long discussion with the patient at the bedside, patient would like to obtain laboratory studies rule out infection, although patient's external and internal otoscope exam and ear exam are grossly unremarkable, shared decision making was utilized thusw will obtain basic laboratory studies, lactic acid level, CT temporal bones/IAC with contrast. CBC is unremarkable CMP is grossly unremarkable, the exception of the hyponatremia 133, no lactic acidosis. I discussed this patient's case in depth with the attending physician , at shift change he will be assuming the main of the patient's care/workup, disposition is pending CT radiology report Ney Baptiste MD: I was consulted by the MULUGETA, and we discussed the complexity of the problems being addressed. I approve the treatment and management plan for this patient's care in the emergency department, thus performing a substantive portion of the medical decision making. CT imaging was interpreted by me personally. Patient has effusion of the right mastoid air cells but no evidence of mastoiditis. There is soft tissue swelling/infiltration involving the left pinna and adjacent soft tissues. This may be a postoperative versus infection. Recommended clinical correlation. Given patient is having drainage is foul-smelling from this area. Will presume there is an infection. Will cover for possible Pseudomonas with levofloxacin. Patient given dose here. Will send additional course to his pharmacy. Patient states that he has follow-up with dermatology at the beginning of next month. Recommended that he follow-up with them as scheduled and to return to the emergency department he has any new or worsening symptoms. All questions were answered. He demonstrated understanding and was in agreement this plan. He was then discharged from the ED in stable condition. Critical Care <DAVID Montano - Last Filed: 05/08/25 22:09> Critical Care Time Critical Care Time: No
[2025-05-08 20:52] VITALS: BP 129/78; PULSE 71; RESP 18; TEMP 37.1; O2SAT 98
--- NOTE | 2025-05-08 21:06 | CT_ITS ---
PROCEDURE INFORMATION: Exam: CT Orbits With Contrast Exam date and time: 05/08/2025 10:06 PM Age: 69 years old Clinical indication: Other: Left otorrhea, HX of skin CA removal of pinna; Other: Ear pain TECHNIQUE: Imaging protocol: Computed tomography of the orbits with contrast. Radiation optimization: All CT scans at this facility use at least one of these dose optimization techniques: automated exposure control; mA and/or kV adjustment per patient size (includes targeted exams where dose is matched to clinical indication); or iterative reconstruction. Contrast material: ISOVUE; Contrast volume: 75 ml; Contrast route: IV; COMPARISON: CT HEAD/BRAIN WO CON 08/16/2021 7:28 PM FINDINGS: There is partial opacification of the right mastoid air cells. No erosive change or air cell coalescence. Right middle ear cavity is clear. Right ossicular chain is intact. Right osseous internal auditory canal is unremarkable. Semicircular canals, vestibule and cochlea appear within normal limits on the right. Right external auditory canal is clear. There is mild partial opacification of the left mastoid air cells. Left middle ear cavity is clear and left ossicular chain is intact. No air cell coalescence or erosive change. Semicircular canals, vestibule and cochlear appear within normal limits on the left. Left osseous internal auditory canal is unremarkable. Left external auditory canal is clear. There is soft tissue thickening involving the left pinna with infiltrative change. No fluid collection. IMPRESSION: 1. Opacification of the [id number]-[id number]-left mastoid air cells without erosive change or air cell coalescence. Effusions favored over mastoiditis. 2. Soft tissue swelling/infiltration involving the left pinna and adjacent soft tissues. This may be on a postoperative basis versus infection, please correlate clinically.
[2025-05-08 21:34] LABS: Hematocrit 42.4 % (42.0-52.0); Hemoglobin 14.4 g/dL (14.1-18.0); Immature Granulocytes % 0.3 %; Mean Corpuscular HGB Conc 34.0 g/dL (31.8-35.4); Mean Corpuscular Hemoglobin 31.2 pg (27.0-31.2); Mean Corpuscular Volume 92.0 fl (80-94); Nucleated Red Blood Cells % 0 %; Platelet Count 166 K/mm3 (142-424); Red Blood Count 4.61 M/mm3 (4.60-6.20); Red Cell Distribution Width-SD 45.1 fL; White Blood Count 7.2 K/mm3 (4.8-10.8)
[2025-05-08 21:42] LABS: Alanine Aminotransferase 25 U/L (12-78); Albumin Level 4.3 g/dl (3.5-5.0); Albumin/Globulin Ratio 1.5 (1.1-1.8); Alkaline Phosphatase 82 U/L (38-126); Anion Gap 7.9 mEq/L (5-15); Aspartate Amino Transferase 26 U/L (17-59); Bilirubin,Total 0.4 mg/dl (0.2-1.3); Blood Urea Nitrogen 19 mg/dl (9-20); Calcium 9.8 mg/dl (8.4-10.2); Carbon Dioxide 29 mmol/L (22.0-30.0); Chloride 100 mmol/L (98-107); Creatinine Clearance Estimated 72 mL/min (50-200); Creatinine,Serum 1.10 mg/dl (0.66-1.25); Estimated Glomerular Filt Rate 66 ml/min (>60); GFR (African American) 80 ML/MIN (>60); Globulin 2.9 g/dL (1.3-3.2); Glucose 100 mg/dl (74-100); Potassium 3.9 mmoL/L (3.5-5.1); Sodium 133 mmol/L (136-145); Total Protein,Serum 7.2 g/dl (6.3-8.2)
[2025-05-08] MEDS: IOPAMIDOL-370 (76%);100ML BOTTLE 75 ML IV (22:12)
[2025-05-08] MEDS: SODIUM CHLORIDE 0.9% 10ML SYR (RAD ONLY) 10 ML IV (22:12)
[2025-05-08 23:02] VITALS: BP 145/78; PULSE 74; RESP 18; TEMP 37.1; O2SAT 98
== END 2025-05-08 23:14 | disposition home or self-care (01) ==
PROVIDERS: Physician Assistant; Emergency Provider Student in an Organized Health Care Education/Training Program; PCP Family Medicine
DX: H92.12 Otorrhea, left ear (principal)
CPT/HCPCS: 70481; 80053; 83605; 85025; 99283; 99284; Q9967